=== PATIENT | male | born 1960 | race Hispanic/Latino ===

== ENCOUNTER 2017-02-28 17:04 | Emergency (ER) | payer MEDICAID ==
[2017-02-28 17:05] VITALS: BMI 42.5
[2017-02-28 17:18] VITALS: TEMP 99
--- NOTE | 2017-02-28 17:42 | ED PDOC ---
Arrival/HPI - General Chief Complaint: Male Genitourinary Time Seen by Provider: 02/28/17 17:14 Historian: Patient - History of Present Illness Narrative History of Present Illness (Text): 02/28/17 17:34 A 56 year old male, whose past medical history includes hypertension and arthritis, presents to the emergency department complaining of hematuria. Patient states he first had clotted blood but later resolved. He also mentions he has never had this problem before. Patient denies of any fever, chills, back pain, penile pain, weight loss, or any other complaints. Also, he states he took aspirin this morning. PMD: Dr. Kevin Cervantes Past Medical History - Provider Review Nursing Documentation Reviewed: Yes - Past History Past History: No Previous - Infectious Disease Hx of Infectious Diseases: None - Tetanus Immunization Tetanus Immunization: Unknown - Past Medical History Past Medical History: No Previous - Cardiac Hx Cardiac Disorders: Yes Hx Hypertension: Yes Hx Peripheral Edema: Yes - Pulmonary Hx Respiratory Disorders: No - Neurological Hx Neurological Disorder: No - HEENT Hx HEENT Disorder: No - Renal Hx Renal Disorder: No - Endocrine/Metabolic Hx Endocrine Disorders: No - Hematological/Oncological Hx Blood Disorders: No - Integumentary Hx Dermatological Disorder: No Other/Comment: right foot and lower leg with redness - Musculoskeletal/Rheumatological Hx Musculoskeletal Disorders: Yes Hx Arthritis: Yes Hx Falls: No Hx Gout: Yes Other/Comment: GOUT, R KNEE PAIN, FASCIAL PAIN TO FEET - Gastrointestinal Hx Gastrointestinal Disorders: No - Genitourinary/Gynecological Hx Genitourinary Disorders: No - Psychiatric Hx Psychophysiologic Disorder: No Hx Depression: No Hx Emotional Abuse: No Hx Physical Abuse: No Hx Substance Use: No - Past Surgical History Past Surgical History: Non-Contributing - Surgical History Hx Appendectomy: Yes - Anesthesia Hx Anesthesia: Yes Hx Anesthesia Reactions: No Hx Malignant Hyperthermia: No - Suicidal Assessment Feels Threatened In Home Enviroment: No Family/Social History - Physician Review Nursing Documentation Reviewed: Yes Family/Social History: No Known Family HX Smoking Status: Never Smoked Hx Alcohol Use: No Hx Substance Use: No Hx Substance Use Treatment: No Allergies/Home Meds Allergies/Adverse Reactions: Allergies Sulfa (Sulfonamide Antibiotics) Allergy (Verified 02/28/17 17:18) RASH ragweed Allergy (Uncoded 02/28/17 17:18) CONGESTION Home Medications: Home Meds Medication Instructions Recorded Confirmed No Known Home Med 02/28/17 02/28/17 Review of Systems - Review of Systems Constitutional: absent: Weight Change, Fevers, Night Sweats Genitourinary Male: Hematuria. absent: Other (no penile pain) Musculoskeletal: absent: Back Pain Physical Exam Vital Signs Reviewed: Yes Vital Signs Temp Pulse Resp BP Pulse Ox 02/28/17 18:22 93 H 17 185/94 H 98 02/28/17 17:15 99 F 97 H 16 187/100 H 95 Temperature: Afebrile Blood Pressure: Hypertensive Pulse: Regular Respiratory Rate: Normal Appearance: Positive for: Well-Appearing Pain Distress: None Mental Status: Positive for: Alert and Oriented X 3 - Systems Exam Head: Present: Atraumatic, Normocephalic Pupils: Present: PERRL Extroacular Muscles: Present: EOMI Conjunctiva: Present: Normal Mouth: Present: Moist Mucous Membranes Neck: Present: Normal Range of Motion Respiratory/Chest: Present: Clear to Auscultation, Good Air Exchange. No: Respiratory Distress, Accessory Muscle Use Cardiovascular: Present: Regular Rate and Rhythm, Normal S1, S2. No: Murmurs Abdomen: Present: Normal Bowel Sounds. No: Tenderness, Distention, Peritoneal Signs Back: Present: Normal Inspection Upper Extremity: Present: Normal Inspection. No: Cyanosis, Edema Lower Extremity: Present: Normal Inspection. No: Edema Neurological: Present: GCS=15, CN II-XII Intact, Speech Normal Skin: Present: Warm, Dry, Normal Color. No: Rashes Psychiatric: Present: Alert, Oriented x 3, Normal Insight, Normal Concentration Medical Decision Making ED Course and Treatment: 02/28/17 17:36 Impression: 56 year old male with hematuria. No acute findings in physical exam. Differential Diagnosis included but are not limited to: Hematuria secondary to UTI vs. Renal Failure Plan: -- Labs -- Urinalysis -- Urine Culture -- Reassess and disposition Prior Visits: Notes and results from previous visits were reviewed. Patient was last seen in the emergency department on 04/09/2016 for intermittent bleeding from the right upper side of his nose. Patient was discharged home. Progress Notes: Potassium low and replaced. Patient has no UTI. Advised to return to the ED if symptoms worsen or any other concern. I discussed with him the importance of follow up with his PMD and Urology and that he should have a work up for cancer. He repeated these follow up instructions to me and said he understood. - Lab Interpretations Lab Results: 02/28/17 17:45 02/28/17 17:45 Lab Results 02/28/17 17:45: Sodium 138, Potassium 3.2 L, Chloride 100, Carbon Dioxide 30, Anion Gap 11, BUN 14, Creatinine 0.8, Est GFR ( Amer) > 60, Est GFR (Non- Af Amer) > 60, Random Glucose 153 H, Calcium 9.2 02/28/17 17:45: WBC 9.9 D, RBC 4.66, Hgb 14.3, Hct 41.0 L, MCV 88.0, MCH 30.7, MCHC 34.9, RDW 13.6, Plt Count 261, MPV 9.0, Gran % 55.2, Lymph % (Auto) 31.3, [place] % (Auto) 9.6 H, Eos % (Auto) 3.7, Baso % (Auto) 0.2, Gran # 5.44, Lymph # 3.1, [place] # 1.0 H, Eos # 0.4, Baso # 0.02 02/28/17 17:30: Urine Color Yellow, Urine Appearance Clear, Urine pH 7.0, Ur Specific [place] <= 1.005, Urine Protein Negative, Urine Glucose (UA) Negative, Urine Ketones Negative, Urine Blood Trace-intact H, Urine Nitrate Negative, Urine Bilirubin Negative, Urine Urobilinogen 0.2, Ur Leukocyte Esterase Negative , Urine RBC 0 - 2, Urine WBC Negative, Ur Epithelial Cells 0 - 2, Urine Bacteria Neg I have reviewed the lab results: Yes - Medication Orders Current Medication Orders: Discontinued Medications Potassium Chloride (K-Dur 20 Meq Er Tab) 40 meq PO STAT STA Stop: 02/28/17 18:17 Last Admin: 02/28/17 18:27 Dose: 40 meq - Scribe Statement The provider has reviewed the documentation as recorded by the Moises Barrios Provider Scribe Attestation: All medical record entries made by the Jose Libpatricio were at my direction and personally dictated by me. I have reviewed the chart and agree that the record accurately reflects my personal performance of the history, physical exam, medical decision making, and the department course for this patient. I have also personally directed, reviewed, and agree with the discharge instructions and disposition. Disposition/Present on Arrival - Present on Arrival Any Indicators Present on Arrival: No History of DVT/PE: No History of Uncontrolled Diabetes: No Urinary Catheter: No History of Decub. Ulcer: No History Surgical Site Infection Following: None - Disposition Have Diagnosis and Disposition been Completed?: Yes Diagnosis: Hematuria, Hypokalemia Disposition: HOME/ ROUTINE Disposition Time: 18:30 Patient Plan: Discharge Condition: IMPROVED Discharge Instructions (ExitCare): Acute Hematuria (ED) Additional Instructions: Mr Rios, thank you for letting us take care of you today. Your provider was Dr. Nunez. You were treated for Hematuria The emergency medical care you received today was directed at your acute symptoms. If you were prescribed any medication, please fill it and take as directed. It may take several days for your symptoms to resolve. Return to the Emergency Department if your symptoms worsen, do not improve, or if you have any other problems. Please contact your doctor or call one of the physicians/clinics you have been referred to that are listed on the Patient Visit Information form that is included in your discharge packet. Bring any paperwork you were given at discharge with you along with any medications you are taking to your follow up visit. Our treatment cannot replace ongoing medical care by a primary care provider (PCP) outside of the emergency department. Thank you for allowing the [facility] team to be part of your care today. If you had an X-Ray or CT scan: A Radiologist will review the ED reading if any change in treatment is needed we will contact you. If you had a blood, urine, or wound culture: It will take several days for the results, if any change in treatment is needed we will contact you. If you had an STI test: It will take 48 hours for the results. Please call after 1 week if you have not heard back. Referrals: Monty Robledo MD [Staff Provider] - Follow up with primary Kevin Cervantes MD [Primary Care Provider] - Follow up with primary Forms: [employer] (Armenian)
[2017-02-28 18:00] LABS: URINE BILIRUBIN NEGATIVE (NEGATIVE); URINE BLOOD TRACE-INTACT (NEGATIVE); URINE GLUCOSE (UA) NEGATIVE (NEGATIVE); URINE KETONE NEGATIVE (NEGATIVE); URINE LEUKOCYTE ESTERASE NEGATIVE Leu/uL (NEGATIVE); URINE PROTEIN NEGATIVE mg/dL (<30 mg/dL); URINE UROBILINOGEN 0.2 E.U./dL (<1 E.U./dL)
[2017-02-28 18:00] LABS: BASO # 0.02 K/mm3 (0.0-2.0); BASO % 0.2 % (0.0-3.0); EOS # 0.4 (0.0-0.7); EOS % 3.7 % (1.5-5.0); GRAN # 5.44 (1.4-6.5); GRAN % 55.2 % (50.0-68.0); LYMPH # 3.1 (1.2-3.4); LYMPH % 31.3 % (22.0-35.0); MEAN CORPUSCULAR HEMOGLOBIN 30.7 pg (25.0-35.0); MEAN CORPUSCULAR HGB CONC 34.9 g/dl (31.0-37.0); MONO % 9.6 % (1.0-6.0); RED CELL DISTRIBUTION WIDTH 13.6 % (11.5-14.5); WHITE BLOOD COUNT 9.9 10^3/ul (4.5-11.0)
[2017-02-28 18:04] LABS: URINE APPEARANCE CLEAR (CLEAR); URINE COLOR YELLOW (YELLOW)
[2017-02-28 18:08] LABS: BLOOD UREA NITROGEN 14 mg/dL (7-21); CALCIUM 9.2 mg/dL (8.4-10.5); CARBON DIOXIDE 30 mmol/L (21-33); CHLORIDE 100 mmol/L (98-107); GFR AFRICAN-AMERICAN > 60; GLUCOSE,RANDOM 153 mg/dL (70-110); POTASSIUM 3.2 mmol/L (3.6-5.0); SODIUM 138 mmol/L (132-148)
[2017-02-28 18:14] LABS: URINE BACTERIA NEG (NEG); URINE EPITHELIAL CELLS 0 - 2 /hpf (0-5); URINE RBC 0 - 2 /hpf (0-2); URINE WBC NEGATIVE /hpf (0-6)
[2017-02-28] MEDS ORDERED: Potassium Chloride 20 mEq ER Tab PO STA (18:16)
[2017-02-28 18:23] VITALS: BP 185/94; PULSE 93; RESP 17; O2SAT 98
== END 2017-02-28 18:32 | disposition home or self-care (01) ==
LOC: ED 17:04
DX: R31.9 Hematuria, unspecified (principal); E87.6 Hypokalemia; I10 Essential (primary) hypertension

== ENCOUNTER 2017-03-03 15:25 | Emergency (ER) | payer MEDICAID ==
[2017-03-03 15:46] VITALS: BMI 32.5
[2017-03-03 15:59] VITALS: BP 131/84; PULSE 93; RESP 16; TEMP 97.9; O2SAT 97
[2017-03-03] MEDS ORDERED: Naproxen 550 mg Tab PO STA (16:27)
--- NOTE | 2017-03-03 16:57 | ED PDOC ---
Arrival/HPI - General Chief Complaint: Finger,Hand,&Wrist Time Seen by Provider: 03/03/17 15:56 Historian: Patient - History of Present Illness Narrative History of Present Illness (Text): 03/03/17 16:54 56 year old male with no significant medical history, presents to the emergency department complaining of pain and swelling to the left 3rd digit. Patient reports picking his nails often that may have caused this "infection". Patient denies any trauma, fever, chills, numbness, decrease in ROM, or any other complaints/ injuries. PMD: Dr. Cervantes Symptom Onset: Gradual Symptom Course: Unchanged Activities at Onset: Light Context: Home Past Medical History - Provider Review Nursing Documentation Reviewed: Yes - Past History Past History: No Previous - Infectious Disease Hx of Infectious Diseases: None - Tetanus Immunization Tetanus Immunization: Unknown - Reproductive Currently : No - Past Medical History Past Medical History: No Previous - Cardiac Hx Cardiac Disorders: Yes Hx Hypertension: Yes Hx Peripheral Edema: Yes - Pulmonary Hx Respiratory Disorders: No - Neurological Hx Neurological Disorder: No - HEENT Hx HEENT Disorder: No - Renal Hx Renal Disorder: No - Endocrine/Metabolic Hx Endocrine Disorders: No - Hematological/Oncological Hx Blood Disorders: No - Integumentary Hx Dermatological Disorder: No Other/Comment: right foot and lower leg with redness - Musculoskeletal/Rheumatological Hx Musculoskeletal Disorders: Yes Hx Arthritis: Yes Hx Falls: No Hx Gout: Yes Other/Comment: GOUT, R KNEE PAIN, FASCIAL PAIN TO FEET - Gastrointestinal Hx Gastrointestinal Disorders: No - Genitourinary/Gynecological Hx Genitourinary Disorders: No - Psychiatric Hx Psychophysiologic Disorder: No Hx Depression: No Hx Emotional Abuse: No Hx Physical Abuse: No Hx Substance Use: No - Past Surgical History Past Surgical History: Non-Contributing - Surgical History Hx Appendectomy: Yes - Anesthesia Hx Anesthesia: Yes Hx Anesthesia Reactions: No Hx Malignant Hyperthermia: No - Suicidal Assessment Feels Threatened In Home Enviroment: No Family/Social History - Physician Review Nursing Documentation Reviewed: Yes Family/Social History: No Known Family HX Smoking Status: Never Smoked Hx Alcohol Use: No Hx Substance Use: No Hx Substance Use Treatment: No Allergies/Home Meds Allergies/Adverse Reactions: Allergies Sulfa (Sulfonamide Antibiotics) Allergy (Verified 02/28/17 17:18) RASH ragweed Allergy (Uncoded 10/12/17 17:18) CONGESTION Review of Systems - Physician Review All systems were reviewed & negative as marked: Yes - Review of Systems Constitutional: Normal. absent: Fatigue, Weight Change, Fevers, Other (Chills) Musculoskeletal: Normal, Arthralgias. absent: Back Pain, Neck Pain Skin: Normal. absent: Rash, Pruritis, Skin Lesions Physical Exam Vital Signs Reviewed: Yes Vital Signs Temp Pulse Resp BP Pulse Ox 03/03/17 15:59 97.9 F 93 H 16 131/84 97 Temperature: Afebrile Blood Pressure: Normal Pulse: Regular Respiratory Rate: Normal Appearance: Positive for: Well-Appearing, Non-Toxic, Comfortable Pain Distress: None Mental Status: Positive for: Alert and Oriented X 3 - Systems Exam Head: Present: Atraumatic, Normocephalic Neck: Present: Normal Range of Motion Back: Present: Normal Inspection Upper Extremity: Present: Normal Inspection, Edema, Normal ROM, NORMAL PULSES, Capillary Refill < 2s, Norm 2-Pt Discrimination, Other (Mild erythema and edema to the nail margin). No: Cyanosis, Temperature Abnormalties, Deformity Lower Extremity: Present: Normal Inspection. No: Edema Neurological: Present: GCS=15, CN II-XII Intact, Speech Normal Skin: Present: Warm, Dry, Normal Color. No: Rashes Medical Decision Making ED Course and Treatment: 03/03/17 16:54 Impression: 56 year old male presents complaining of pain and swelling to the left third digit finger/nail. Plan: -- Anaprox DS -- Keflex -- Reassess and disposition Progress Notes: Diagnosis of paronychia d/w the patient. Advised to apply warm compresses and finish course of antibiotics. Patient advised to follow up with urology referral in 1-2 days without fail. Advised to take medication as prescribed. Return to the emergency room at any time for any new or worsening symptoms. Patient states he fully agrees with and understands discharge instructions. States that he agrees with the plan and disposition. Verbalized and repeated discharge instructions and plan. I have given the patient opportunity to ask any additional questions. - Medication Orders Current Medication Orders: Discontinued Medications Cephalexin Monohydrate (Keflex) 500 mg PO STAT STA PRN Reason: Protocol Stop: 03/03/17 16:27 Last Admin: 03/03/17 16:55 Dose: 500 mg Naproxen (Anaprox Ds) 550 mg PO STAT STA Stop: 03/03/17 16:28 Last Admin: 03/03/17 16:56 Dose: 550 mg - PA / CARROT BUNCHER / Resident Statement MD/DO has reviewed & agrees with the documentation as recorded. - Scribe Statement The provider has reviewed the documentation as recorded by the Scribe Acosta Dubose All medical record entries made by the Scribe were at my direction and personally dictated by me. I have reviewed the chart and agree that the record accurately reflects my personal performance of the history, physical exam, medical decision making, and the department course for this patient. I have also personally directed, reviewed, and agree with the discharge instructions and disposition. Disposition/Present on Arrival - Present on Arrival Any Indicators Present on Arrival: No History of DVT/PE: No History of Uncontrolled Diabetes: No Urinary Catheter: No History of Decub. Ulcer: No History Surgical Site Infection Following: None - Disposition Have Diagnosis and Disposition been Completed?: Yes Diagnosis: Paronychia of finger of left hand Disposition: HOME/ ROUTINE Disposition Time: 16:27 Patient Plan: Discharge Condition: STABLE Discharge Instructions (ExitCare): Paronychia (ED) Print Language: INDIAN Additional Instructions: Thank you for letting us take care of you today. You were treated for paronychia. The emergency medical care you received today was directed at your acute symptoms. If you were prescribed any medication, please fill it and take as directed. It may take several days for your symptoms to resolve. Return to the Emergency Department if your symptoms worsen, do not improve, or if you have any other problems. Please contact your doctor in 2 days for re-evaluation and follow up. Bring any paperwork you were given at discharge with you along with any medications you are taking to your follow up visit. Our treatment cannot replace ongoing medical care by a primary care provider (PCP) outside of the emergency department. Thank you for allowing the [facility] team to be part of your care today. Prescriptions: Cephalexin [Keflex] 500 mg PO Q6 #28 capsule Naproxen 500 mg PO BID #30 tab Referrals: Kevin Cervantes MD [Primary Care Provider] - Follow up with primary Forms: [employer] (Arabic), WORK NOTE
== END 2017-03-03 17:14 | disposition home or self-care (01) ==
LOC: ED 15:25
DX: L03.012 Cellulitis of left finger (principal)

== ENCOUNTER 2017-03-16 20:07 | Emergency (ER) | payer MEDICAID ==
[2017-03-16 20:30] VITALS: BMI 29.8
[2017-03-16 20:39] VITALS: TEMP 98.7
[2017-03-16] MEDS ORDERED: Oxycodone/Acetaminophen 5/325 mg Tab PO STA (20:53)
--- NOTE | 2017-03-16 20:53 | ED PDOC ---
Arrival/HPI - General Chief Complaint: Finger,Hand,&Wrist Time Seen by Provider: 03/16/17 20:47 Historian: Patient - History of Present Illness Narrative History of Present Illness (Text): 03/16/17 20:47 56 y/o male, pmh including paronychia, c/o lt. hand 3rd digit finger nail swelling and pain x 3 days with no fall or trauma. Pt. stated that his lt. hand 3rd digit started to have swelling about 3 days ago, admits cutting the nail very short and washing the dishes/soap alot, no numbness or tingling, no difficulty moving the lt. hand 3rd digit, no pain medication taken at home, no other medical or psychological complaints. Past Medical History - Provider Review Nursing Documentation Reviewed: Yes - Past History Past History: No Previous - Infectious Disease Hx of Infectious Diseases: None - Tetanus Immunization Tetanus Immunization: Unknown - Reproductive Currently : No - Past Medical History Past Medical History: No Previous - Cardiac Hx Cardiac Disorders: Yes Hx Hypertension: Yes Hx Peripheral Edema: Yes - Pulmonary Hx Respiratory Disorders: No - Neurological Hx Neurological Disorder: No - HEENT Hx HEENT Disorder: No - Renal Hx Renal Disorder: No - Endocrine/Metabolic Hx Endocrine Disorders: No - Hematological/Oncological Hx Blood Disorders: No - Integumentary Hx Dermatological Disorder: No Other/Comment: right foot and lower leg with redness - Musculoskeletal/Rheumatological Hx Musculoskeletal Disorders: Yes Hx Arthritis: Yes Hx Falls: No Hx Gout: Yes Other/Comment: GOUT, R KNEE PAIN, FASCIAL PAIN TO FEET - Gastrointestinal Hx Gastrointestinal Disorders: No - Genitourinary/Gynecological Hx Genitourinary Disorders: No - Psychiatric Hx Psychophysiologic Disorder: No Hx Depression: No Hx Emotional Abuse: No Hx Physical Abuse: No Hx Substance Use: No - Past Surgical History Past Surgical History: Non-Contributing - Surgical History Hx Appendectomy: Yes - Anesthesia Hx Anesthesia: Yes Hx Anesthesia Reactions: No Hx Malignant Hyperthermia: No - Suicidal Assessment Feels Threatened In Home Enviroment: No Family/Social History - Physician Review Nursing Documentation Reviewed: Yes Family/Social History: Unknown Family HX Smoking Status: Never Smoked Hx Alcohol Use: No Hx Substance Use: No Hx Substance Use Treatment: No Allergies/Home Meds Allergies/Adverse Reactions: Allergies Sulfa (Sulfonamide Antibiotics) Allergy (Verified 03/17/17 16:09) RASH ragweed Allergy (Uncoded 03/17/17 16:09) CONGESTION Review of Systems - Review of Systems Constitutional: absent: Fatigue, Fevers Eyes: absent: Vision Changes ENT: absent: Hearing Changes Respiratory: absent: SOB, Cough Cardiovascular: absent: Chest Pain Gastrointestinal: absent: Abdominal Pain, Nausea, Vomiting Musculoskeletal: absent: Arthralgias, Back Pain, Neck Pain, Joint Swelling, Myalgias Skin: Rash, Skin Lesions, Abscess. absent: Pruritis, Laceration, Ulcer, Cellulitis Neurological: absent: Headache, Dizziness Physical Exam Vital Signs Reviewed: Yes Vital Signs Temp Pulse Resp BP Pulse Ox 03/16/17 22:42 88 18 161/90 H 96 03/16/17 20:38 98.7 F 16 184/95 H 98 03/16/17 20:23 98.4 F 91 H 18 208/118 H 99 Temperature: Afebrile Blood Pressure: Hypertensive Pulse: Regular Respiratory Rate: Normal Appearance: Positive for: Well-Appearing, Non-Toxic Pain Distress: Severe Mental Status: Positive for: Alert and Oriented X 3 - Systems Exam Head: Present: Atraumatic, Normocephalic Pupils: Present: PERRL Extroacular Muscles: Present: EOMI Conjunctiva: Present: Normal Mouth: Present: Moist Mucous Membranes Neck: Present: Normal Range of Motion Respiratory/Chest: Present: Clear to Auscultation, Good Air Exchange. No: Respiratory Distress, Accessory Muscle Use Cardiovascular: Present: Regular Rate and Rhythm, Normal S1, S2. No: Murmurs Abdomen: Present: Normal Bowel Sounds. No: Tenderness, Distention, Peritoneal Signs Back: Present: Normal Inspection Upper Extremity: Present: Normal Inspection, Other (Lt. hand 3rd digit: visible paronychia noted with mild fluctuant, no cellulitis or streaking, no ulcers, no sausage shaped fingers, Negative Kanavel's signs, FROM without limitation, sensation intact, motor 5/5, +radial pulse, capillary refill< 2 seconds, neurovascular intact. ). No: Cyanosis, Edema Lower Extremity: Present: Normal Inspection. No: Edema Neurological: Present: GCS=15, CN II-XII Intact, Speech Normal Skin: Present: Warm, Dry, Normal Color. No: Rashes Psychiatric: Present: Alert, Oriented x 3, Normal Insight, Normal Concentration Medical Decision Making ED Course and Treatment: 03/16/17 21:03 -clindamycin/motrin/percocet -xray 03/16/17 21:55 -xray show ER wet read: no fracture or dislocation, there are degenerative joint changes. -asymptomatic elevated BP, advised to follow up with the pmd for the follow up. -sensation intact, motor 5/5, wound irrigate with normal saline, clean with betadine, #11 blade made 0.1cm length incision, approx. cc yellow purlulant discharge, no vesicular lesion or herpetic leanna noted, hemostasis obtained, bacitracin and gauze dressing, sensation intact, motor 5/5. -Discharge home with clindamycin, motrin, bacitracin oinment, keep the finger dry and clean for 2 days and return to the ER for wound check, follow up with your own pmd and hand specialist within 2 days, return to the ER for any new or worsening signs or symptoms. - RAD Interpretation Radiology Orders: 03/16/17 20:56 HAND LEFT 3RD DIGIT (FINGER) [RAD] Stat no fracture or dislocation, diffuse DIPJ degenerative changes Circuit Breaker Mechanic: Radiologist - Medication Orders Current Medication Orders: Discontinued Medications Clindamycin HCl (Cleocin) 300 mg PO STAT STA PRN Reason: Protocol Stop: 03/16/17 20:54 Last Admin: 03/16/17 21:04 Dose: 300 mg Ibuprofen (Motrin Tab) 600 mg PO STAT STA Stop: 03/16/17 20:54 Last Admin: 03/16/17 21:04 Dose: 600 mg MAR Pain/Vitals Document 03/16/17 21:04 MS (Rec: 03/16/17 21:04 [email or web address] Pain Reassessment Is This A Pain ReAssessment? No Oxycodone/Acetaminophen (Percocet 5/325 Mg Tab) 1 tab PO STAT STA Stop: 03/16/17 20:54 Last Admin: 03/16/17 21:04 Dose: 1 tab MAR Pain Assessment Document 03/16/17 21:04 MS (Rec: 03/16/17 21:04 [email or web address] Pain Reassessment Is this a pain reassessment? No - PA / MACHINE CEMENTER / Resident Statement MD/DO has reviewed & agrees with the documentation as recorded. Disposition/Present on Arrival - Present on Arrival Any Indicators Present on Arrival: No History of DVT/PE: No History of Uncontrolled Diabetes: No Urinary Catheter: No History of Decub. Ulcer: No History Surgical Site Infection Following: None - Disposition Have Diagnosis and Disposition been Completed?: Yes Diagnosis: Paronychia Disposition: HOME/ ROUTINE Disposition Time: 22:31 Patient Plan: Discharge Patient Problems: Current Active Problems Problem Status Onset Encounter for wound re-check Acute Nonspecific abdominal pain Acute Condition: GOOD Additional Instructions: -Discharge home with clindamycin, motrin, bacitracin oinment, keep the finger dry and clean for 2 days and return to the ER for wound check, follow up with your own pmd and hand specialist within 2 days, return to the ER for any new or worsening signs or symptoms. Prescriptions: Bacitracin Ointment [Bacitracin] 1 appful TOP BID #15 g Clindamycin [Cleocin] 300 mg PO TID #30 cap Ibuprofen [Motrin Tab] 600 mg PO TID #18 tab Referrals: Kevin Cervantes MD [Primary Care Provider] - Follow up with primary Samra Gates MD [Staff Provider] - Follow up with primary Forms: WORK NOTE
[2017-03-16 22:42] VITALS: BP 161/90
[2017-03-16 22:46] VITALS: PULSE 88; RESP 18; O2SAT 96
--- NOTE | 2017-03-17 09:16 | RAD ---
PROCEDURE: Left middle finger radiographs. HISTORY: lt. hand 3rd digit swelling COMPARISON: None. TECHNIQUE: AP radiograph of the left hand, as well as spot oblique and lateral images of left middle finger were obtained. FINDINGS: LEFT MIDDLE FINGER: Left middle finger normal, without fracture of focal lesion. Remainder of the left hand (as seen on the AP view) is grossly unremarkable. No destructive bony lesion is identified. JOINTS: Advanced osteoarthritis appreciate the distal interphalangeal joints diffusely with far lesser degenerative changes seen throughout the proximal interphalangeal joints. SOFT TISSUES: Normal. OTHER FINDINGS: None. IMPRESSION: No acute fracture dislocation left long finger. However, diffuse degenerative joint disease seen quite advanced throughout the distal interphalangeal joints diffusely.
== END 2017-03-16 22:47 | disposition home or self-care (01) ==
LOC: ED 20:07
DX: L03.012 Cellulitis of left finger (principal); I10 Essential (primary) hypertension

== ENCOUNTER 2017-03-17 15:56 | Emergency (ER) | payer MEDICAID ==
[2017-03-17 15:57] VITALS: BMI 29.8
[2017-03-17 16:10] VITALS: BP 152/96; PULSE 79; RESP 18; TEMP 98.4; O2SAT 100
--- NOTE | 2017-03-17 16:35 | ED PDOC ---
Arrival/HPI - General Chief Complaint: Abdominal Pain Time Seen by Provider: 03/17/17 16:09 Historian: Patient - History of Present Illness Narrative History of Present Illness (Text): 03/17/17 16:27 This 56 yo male presents to this ED requesting change of his antibiotic. Patient stated he was prescribed Clindamycin for paronychia yesterday. He took another dose this morning which caused cramping of his stomach. Patient stated he does not have abdominal pain at this time. Patient denies nausea, vomiting, urinary symptoms, chest pain, SOB, urinary symptoms, rectal bleeding, diarrhea, constipation, dizziness, or abnormal gait. Patient showed me an empty bottle Naproxen. He also stated taking Motrin before Time/Duration: Other (see hpi) Quality: Other (see hpi) Context: Home Past Medical History - Provider Review Nursing Documentation Reviewed: Yes - Past History Past History: No Previous - Infectious Disease Hx of Infectious Diseases: None - Tetanus Immunization Tetanus Immunization: Unknown - Reproductive Currently : No - Past Medical History Past Medical History: No Previous - Cardiac Hx Cardiac Disorders: Yes Hx Hypertension: Yes Hx Peripheral Edema: Yes - Pulmonary Hx Respiratory Disorders: No - Neurological Hx Neurological Disorder: No - HEENT Hx HEENT Disorder: No - Renal Hx Renal Disorder: No - Endocrine/Metabolic Hx Endocrine Disorders: No - Hematological/Oncological Hx Blood Disorders: No - Integumentary Hx Dermatological Disorder: No Other/Comment: right foot and lower leg with redness - Musculoskeletal/Rheumatological Hx Musculoskeletal Disorders: Yes Hx Arthritis: Yes Hx Falls: No Hx Gout: Yes Other/Comment: GOUT, R KNEE PAIN, FASCIAL PAIN TO FEET - Gastrointestinal Hx Gastrointestinal Disorders: No - Genitourinary/Gynecological Hx Genitourinary Disorders: No - Psychiatric Hx Psychophysiologic Disorder: No Hx Depression: No Hx Emotional Abuse: No Hx Physical Abuse: No Hx Substance Use: No - Past Surgical History Past Surgical History: Non-Contributing - Surgical History Hx Appendectomy: Yes - Anesthesia Hx Anesthesia: Yes Hx Anesthesia Reactions: No Hx Malignant Hyperthermia: No - Suicidal Assessment Feels Threatened In Home Enviroment: No Family/Social History - Physician Review Nursing Documentation Reviewed: Yes Family/Social History: Other (noncontributory) Smoking Status: Never Smoked Hx Alcohol Use: No Hx Substance Use: No Hx Substance Use Treatment: No Allergies/Home Meds Allergies/Adverse Reactions: Allergies Sulfa (Sulfonamide Antibiotics) Allergy (Verified 03/17/17 16:09) RASH ragweed Allergy (Uncoded 03/17/17 16:09) CONGESTION Review of Systems - Review of Systems Constitutional: Normal. absent: Fatigue, Weight Change, Fevers, Night Sweats Eyes: Normal ENT: Normal. absent: Hearing Changes, Sore Throat Respiratory: Normal. absent: SOB, Cough Cardiovascular: Normal. absent: Chest Pain Gastrointestinal: Other (see hpi). absent: Stool Changes, Constipation, Diarrhea, Nausea, Vomiting, Appetite Changes, Hematochezia, Hematemesis, Anorexia, Food Intolerance Genitourinary Male: Normal. absent: Dysuria, Frequency, Hematuria Musculoskeletal: Normal. absent: Back Pain, Neck Pain Skin: Normal. absent: Rash Neurological: Normal Endocrine: Normal Hemo/Lymphatic: Normal Psychiatric: Normal Physical Exam Vital Signs Temp Pulse Resp BP Pulse Ox 03/17/17 16:09 98.4 F 79 18 152/96 H 100 Temperature: Afebrile Blood Pressure: Hypertensive Pulse: Regular Respiratory Rate: Normal Appearance: Positive for: Well-Appearing, Non-Toxic, Comfortable Pain Distress: None Mental Status: Positive for: Alert and Oriented X 3 - Systems Exam Head: Present: Atraumatic, Normocephalic Pupils: Present: PERRL Extroacular Muscles: Present: EOMI Conjunctiva: Present: Normal Mouth: Present: Moist Mucous Membranes Neck: Present: Normal Range of Motion Respiratory/Chest: Present: Clear to Auscultation, Good Air Exchange. No: Respiratory Distress, Accessory Muscle Use Cardiovascular: Present: Regular Rate and Rhythm, Normal S1, S2. No: Murmurs Abdomen: Present: Normal Bowel Sounds. No: Tenderness, Distention, Peritoneal Signs, Rebound, Guarding Back: Present: Normal Inspection. No: CVA Tenderness Upper Extremity: Present: Normal Inspection, Normal ROM, NORMAL PULSES, Neurovascularly Intact, Capillary Refill < 2s. No: Cyanosis, Edema Lower Extremity: Present: Normal Inspection, NORMAL PULSES, Normal ROM, Neurovascularly Intact, Capillary Refill < 2 s. No: Edema, CALF TENDERNESS Neurological: Present: GCS=15, CN II-XII Intact, Speech Normal, Motor Func Grossly Intact, Normal Sensory Function, Normal Cerebellar Funct, Gait Normal Skin: Present: Warm, Dry, Normal Color. No: Rashes Psychiatric: Present: Alert, Oriented x 3, Normal Insight, Normal Concentration Medical Decision Making ED Course and Treatment: 03/17/17 16:37 Patient is resting comfortably, abdomen remains soft, and patient is tolerating PO. Patient feels comfortable going home. Patient will be discharged home. Patient was recommended to stop taking Naproxen or Motrin. Re-evaluation Time: 16:37 Reassessment Condition: Re-examined, Improved Disposition/Present on Arrival - Present on Arrival Any Indicators Present on Arrival: No History of DVT/PE: No History of Uncontrolled Diabetes: No Urinary Catheter: No History of Decub. Ulcer: No History Surgical Site Infection Following: None - Disposition Have Diagnosis and Disposition been Completed?: Yes Diagnosis: Encounter for wound re-check, Nonspecific abdominal pain Disposition: HOME/ ROUTINE Disposition Time: 16:42 Patient Plan: Discharge Condition: GOOD Discharge Instructions (ExitCare): Abdominal Pain (ED) Additional Instructions: Call private doctor for follow up visit in 1-2 days. Take medication as instructed with food. Do not take Motrin, Naproxen for pain. Take only Tylenol as needed. Return to emergency if pain returns. Stop taking Clindamycin. Clean finger wound daily with soap and water. Prescriptions: Doxycycline Monohydrate 100 mg PO BID #14 tablet Famotidine [Pepcid] 40 mg PO DAILY #10 tablet Omeprazole 40 mg PO DAILY #10 capsule. Referrals: [facility] [Outside] - Follow up with primary [facility] [Outside] - Follow up with primary
[2017-03-17] MEDS ORDERED: Atrop/Hyosc/Scopal/PB Elixir (120 ml) PO STA (16:44)
[2017-03-17] MEDS ORDERED: Lidocaine 2% Viscous 100 ml PO STA (16:44)
[2017-03-17] MEDS ORDERED: Alum-Mag Hydrox-Simethicone Susp (30 mL) PO STA (16:45)
== END 2017-03-17 17:10 | disposition home or self-care (01) ==
LOC: ED 15:56
DX: R10.9 Unspecified abdominal pain (principal); Z51.89 Encounter for other specified aftercare

== ENCOUNTER 2017-03-19 20:51 | Emergency (ER) | payer MEDICAID ==
[2017-03-19 21:11] VITALS: BMI 32.5
[2017-03-19 21:14] VITALS: BP 190/100; PULSE 84; RESP 18; TEMP 98; O2SAT 96
--- NOTE | 2017-03-19 21:42 | ED PDOC ---
Arrival/HPI - General Chief Complaint: Wound Check Time Seen by Provider: 03/19/17 20:54 - Critical Care Narrative Critical Care (Text): 03/19/17 21:39 CC: wound check Patient is coming in for a wound check. Patient is adamant that his blood pressure gets elevated when he comes to the Emergency department and after he eats dinner. He is in denial about his blood pressure and refuses to take any medicine for it. I urged him to seek treatment for his blood pressure as it is a silent killer and the patient believes that I am making it all up. The patient has no complaints today; denies any finger pain, headache, chest pain, shortness of breath, abdominal pain, Nausea, vomiting, diarrhea, or lower extremity pain swelling. Past Medical History - Provider Review Nursing Documentation Reviewed: Yes - Travel History Have you recently traveled outside [place] w/in the past 3 mons?: No - Past History Past History: No Previous - Infectious Disease Hx of Infectious Diseases: None - Tetanus Immunization Tetanus Immunization: Unknown - Reproductive Currently : No - Past Medical History Past Medical History: No Previous - Cardiac Hx Cardiac Disorders: Yes Hx Hypertension: Yes Hx Peripheral Edema: Yes - Pulmonary Hx Respiratory Disorders: No - Neurological Hx Neurological Disorder: No - HEENT Hx HEENT Disorder: No - Renal Hx Renal Disorder: No - Endocrine/Metabolic Hx Endocrine Disorders: No - Hematological/Oncological Hx Blood Disorders: No - Integumentary Hx Dermatological Disorder: No Other/Comment: right foot and lower leg with redness - Musculoskeletal/Rheumatological Hx Musculoskeletal Disorders: Yes Hx Arthritis: Yes Hx Falls: No Hx Gout: Yes Other/Comment: GOUT, R KNEE PAIN, FASCIAL PAIN TO FEET - Gastrointestinal Hx Gastrointestinal Disorders: No - Genitourinary/Gynecological Hx Genitourinary Disorders: No - Psychiatric Hx Psychophysiologic Disorder: No Hx Depression: No Hx Emotional Abuse: No Hx Physical Abuse: No Hx Substance Use: No - Past Surgical History Past Surgical History: Non-Contributing - Surgical History Hx Appendectomy: Yes - Anesthesia Hx Anesthesia: Yes Hx Anesthesia Reactions: No Hx Malignant Hyperthermia: No - Suicidal Assessment Feels Threatened In Home Enviroment: No Family/Social History - Physician Review Nursing Documentation Reviewed: Yes Family/Social History: No Known Family HX Smoking Status: Never Smoked Hx Alcohol Use: No Hx Substance Use: No Hx Substance Use Treatment: No Allergies/Home Meds Allergies/Adverse Reactions: Allergies Sulfa (Sulfonamide Antibiotics) Allergy (Verified 03/19/17 21:11) RASH ragweed Allergy (Uncoded 03/19/17 21:11) CONGESTION Review of Systems - Physician Review All systems were reviewed & negative as marked: Yes - Review of Systems Constitutional: absent: Fatigue, Weight Change, Fevers Eyes: absent: Vision Changes, Photophobia ENT: Hearing Changes Respiratory: absent: SOB, Cough Cardiovascular: absent: Chest Pain, Palpitations Gastrointestinal: absent: Abdominal Pain, Stool Changes Genitourinary Male: absent: Dysuria, Frequency Musculoskeletal: absent: Arthralgias, Back Pain Skin: absent: Rash, Pruritis, Skin Lesions Neurological: absent: Headache, Dizziness Endocrine: absent: Diaphoresis, Polyuria Hemo/Lymphatic: absent: Adenopathy, Easy Bleeding Psychiatric: absent: Anxiety Physical Exam Vital Signs Temp Pulse Resp BP Pulse Ox 03/19/17 21:13 98.0 F 84 18 190/100 H 96 Temperature: Afebrile Blood Pressure: Hypertensive (patient in complete denail about extremely elevated BP and was urged to seek treatment patient refused blood pressure treatment and is unwilling to wait in ER for blood pressure lowering medicine) Appearance: Positive for: Well-Appearing, Non-Toxic, Comfortable Pain Distress: None Mental Status: Positive for: Alert and Oriented X 3 - Systems Exam Head: Present: Atraumatic Pupils: Present: PERRL Extroacular Muscles: Present: EOMI Conjunctiva: Present: Normal Mouth: Present: Moist Mucous Membranes Pharnyx: No: ERYTHEMA, EXUDATE Neck: Present: Normal Range of Motion. No: Meningeal Signs Respiratory/Chest: Present: Clear to Auscultation, Good Air Exchange. No: Respiratory Distress Cardiovascular: Present: Regular Rate and Rhythm, Normal S1, S2. No: Murmurs Abdomen: Present: Normal Bowel Sounds. No: Tenderness, Distention Upper Extremity: Present: Normal Inspection (patient has a healing paranychia on the middle finger of his left hand, no signs of pus swelling erythema or pain to palpation; was re-dressed with bacitracin and loose guaze; patient told to keep wound more open to air ), Normal ROM, NORMAL PULSES. No: Cyanosis, Edema Lower Extremity: Present: Normal Inspection. No: Edema, CALF TENDERNESS Neurological: Present: GCS=15, CN II-XII Intact Skin: Present: Warm Psychiatric: Present: Alert, Oriented x 3, Normal Insight, Normal Concentration , Normal Affect Medical Decision Making ED Course and Treatment: 03/19/17 21:42 No more signs of infection Told to place bacitracin on wound with loose gauze and keep dry and clean patient was urged to take blood pressure medicine and he refused patient urged to go to PMD about blood pressure but insists that his blood pressure is only elevated when he is in the ER and that it will go down once he is home and he knows how to treat himself and feels fine patient is refusing all other forms of treatment not related to his finger the patient is ok to be discharged as per dr. arauz Disposition/Present on Arrival - Present on Arrival Any Indicators Present on Arrival: Yes History of DVT/PE: No History of Uncontrolled Diabetes: No Urinary Catheter: No History of Decub. Ulcer: No History Surgical Site Infection Following: None - Disposition Have Diagnosis and Disposition been Completed?: Yes Diagnosis: Visit for wound check, High blood pressure Disposition: HOME/ ROUTINE Disposition Time: 21:44 Patient Plan: Discharge Condition: UNKNOWN Discharge Instructions (ExitCare): Hypertensive Crisis (ED), Wound Infection ( ED) Additional Instructions: Please make sure to see your PMD for your high blood pressure; this is a silent killer and you will not be able to treat it once it is too late If you have any chest pain, shortness of breath, dizziness/headache please come back to the Emergency department for treatment. Please make sure to keep your wound clean dry and with loose gauze that was provided with bacitracin that was also provided It was a pleasure to treat you Have a great day
== END 2017-03-19 22:02 | disposition home or self-care (01) ==
LOC: ED 20:51
DX: Z51.89 Encounter for other specified aftercare (principal); I10 Essential (primary) hypertension

== ENCOUNTER 2017-03-21 00:05 | Emergency (ER) | payer MEDICAID ==
[2017-03-21 00:06] VITALS: BMI 32.5
[2017-03-21 00:32] VITALS: TEMP 98
[2017-03-21 01:16] VITALS: BP 186/107; PULSE 90
--- NOTE | 2017-03-21 01:32 | ED PDOC ---
Arrival/HPI - General Chief Complaint: Finger,Hand,&Wrist Time Seen by Provider: 03/21/17 01:06 Historian: Patient - History of Present Illness Narrative History of Present Illness (Text): 03/21/17 02:28 56 yo M presents for wound check to the L 3rd digit and is noted to have elevated BP. Patient denies any fever, chills, decrease in ROM, redness, swelling, d/c, headache, dizziness, CP, SOB, palpitations, N/V. Patient states that he believes that the antibiotics are causing his BP to be elevated, therefore he decided to stop taking them today. He admits to having elevated bp in the past, "but not this high," he states that medications to lower bp is not safe and does not want to take any and believes he does not need to take any, he states that he can lower his bp on his own with diet. Otherwise has no other complaints. Past Medical History - Provider Review Nursing Documentation Reviewed: Yes - Past History Past History: No Previous - Infectious Disease Hx of Infectious Diseases: None - Tetanus Immunization Tetanus Immunization: Unknown - Reproductive Currently : No - Past Medical History Past Medical History: No Previous - Cardiac Hx Cardiac Disorders: Yes Hx Hypertension: Yes Hx Peripheral Edema: Yes - Pulmonary Hx Respiratory Disorders: No - Neurological Hx Neurological Disorder: No - HEENT Hx HEENT Disorder: No - Renal Hx Renal Disorder: No - Endocrine/Metabolic Hx Endocrine Disorders: No - Hematological/Oncological Hx Blood Disorders: No - Integumentary Hx Dermatological Disorder: No Other/Comment: right foot and lower leg with redness - Musculoskeletal/Rheumatological Hx Musculoskeletal Disorders: Yes Hx Arthritis: Yes Hx Falls: No Hx Gout: Yes Other/Comment: GOUT, R KNEE PAIN, FASCIAL PAIN TO FEET - Gastrointestinal Hx Gastrointestinal Disorders: No - Genitourinary/Gynecological Hx Genitourinary Disorders: No - Psychiatric Hx Psychophysiologic Disorder: No Hx Depression: No Hx Emotional Abuse: No Hx Physical Abuse: No Hx Substance Use: No - Past Surgical History Past Surgical History: Non-Contributing - Surgical History Hx Appendectomy: Yes - Anesthesia Hx Anesthesia: Yes Hx Anesthesia Reactions: No Hx Malignant Hyperthermia: No - Suicidal Assessment Feels Threatened In Home Enviroment: No Family/Social History - Physician Review Nursing Documentation Reviewed: Yes Family/Social History: Unknown Family HX Smoking Status: Never Smoked Hx Alcohol Use: No Hx Substance Use: No Hx Substance Use Treatment: No Allergies/Home Meds Allergies/Adverse Reactions: Allergies Sulfa (Sulfonamide Antibiotics) Allergy (Verified 03/21/17 00:33) RASH ragweed Allergy (Uncoded 03/21/17 00:33) CONGESTION Review of Systems - Review of Systems Constitutional: Normal. absent: Fatigue, Weight Change, Fevers Respiratory: Normal. absent: SOB, Cough, Sputum Cardiovascular: Normal. absent: Chest Pain, Palpitations, Edema Musculoskeletal: Normal. absent: Arthralgias, Back Pain, Neck Pain Skin: Normal, Other (recent infection to the L 3rd digit). absent: Rash, Pruritis, Skin Lesions Neurological: Normal. absent: Headache, Dizziness, Focal Weakness Physical Exam - Physical Exam Narrative Physical Exam (Text): 03/21/17 02:26 GENERAL APPEARANCE: Patient is awake, alert, oriented x 3, in no acute distress. SKIN: Warm, dry; (-) cyanosis. EYES: (-) conjunctival pallor. ENMT: Mucous membranes moist. NECK: (-) tenderness, (-) stiffness, (-) lymphadenopathy, (-) JVD. CHEST AND RESPIRATORY: (-) rash, (-) chest wall tenderness. Lungs: (-) rales , (-) rhonchi, (-) wheezes, (-) rub; breath sounds equal bilaterally. HEART AND CARDIOVASCULAR: (-) irregularity; (-) murmur, (-) gallop, (-) rub. ABDOMEN AND GI: Soft; (-) distention, (-) tenderness, (-) palpable pulsatile mass. EXTREMITIES: (-) deformity; (-) purulent d/c, (-) erythema, (-) tenderness, (- ) edema, (-) calf tenderness. (+) distal pulses. NEURO AND PSYCH: Mental status as above. Cranial nerves grossly intact; strength symmetric. Vital Signs Temp Pulse Resp BP Pulse Ox 03/21/17 01:40 19 98 03/21/17 01:15 90 18 186/107 H 97 03/21/17 00:26 98.0 F 83 18 196/113 H 96 Medical Decision Making ED Course and Treatment: 03/21/17 02:24 56 yo M presents for wound check to the L 3rd digit and is noted to have elevated BP. Wound to the L 3rd digit is healing with no signs of worsening infection or decrease in ROM of the digit. Patient is also refusing to be treated for his elevated BP. He states that he would rather improve his BP on his own through diet without any other medical intervention being offered by the ER. Patient refuses further care, evaluation or treatment in the ER. Patient informed of the reasons for the following and planned treatment, which patient understands, however still refuses. Patient informed of the risk and benefits of treatment. Informed that the risk could include worsening of current conditions, undiagnosed conditions, disability or even . Patient understands the following risk and the benefits of treatment. Patient has the capacity to make decisions and still refuses treatment by RN, PA and ER MD. Patient encouraged to return to the ER at any time and to follow up with pmd and wound care center. - PA / INTERIOR DESIGN CONSULTANT / Resident Statement /DO has reviewed & agrees with the documentation as recorded. Disposition/Present on Arrival - Present on Arrival Any Indicators Present on Arrival: No History of DVT/PE: No History of Uncontrolled Diabetes: No Urinary Catheter: No History of Decub. Ulcer: No History Surgical Site Infection Following: None - Disposition Have Diagnosis and Disposition been Completed?: Yes Diagnosis: Visit for wound check, Hypertension Disposition: AGAINST MEDICAL ADVICE Disposition Time: 01:29 Patient Plan: Other (Pt left AMA) Condition: STABLE Discharge Instructions (ExitCare): Acute Wound Care (ED), Hypertension (ED), Against Medical Advice (ED) Print Language: KOSOVAN Referrals: Kevin Cervantes MD [Primary Care Provider] - Follow up with primary [facility] [Outside] - Follow up with primary Forms: [employer] (Croatian)
[2017-03-21 01:59] VITALS: RESP 19; O2SAT 98
== END 2017-03-21 01:40 | disposition left against medical advice (07) ==
LOC: ED 00:05
DX: I10 Essential (primary) hypertension (principal); Z51.89 Encounter for other specified aftercare

== ENCOUNTER 2017-04-11 19:12 | Emergency (ER) | payer MEDICAID ==
[2017-04-11 19:12] VITALS: BMI 32.5
[2017-04-11 19:23] VITALS: TEMP 98.5
--- NOTE | 2017-04-11 19:44 | ED PDOC ---
Arrival/HPI - General Chief Complaint: Abnormal Skin Integrity Time Seen by Provider: 04/11/17 19:40 Historian: Patient - History of Present Illness Narrative History of Present Illness (Text): 04/11/17 19:41 56yo male with PMhx of hypertension present for evaluation of left 3rd finger infection. He notes that I & D was done by Dr. Calix. He was given Augmentin for 7days. He states he keeps it wrap all the time with band aid. Finished the antibiotics and still having pain in the finger. Admit to mild purulent discharge whenever he changes the band aid. He otherwise denies fever, chills, swelling, any other complaint. Past Medical History - Provider Review Nursing Documentation Reviewed: Yes - Past History Past History: No Previous - Infectious Disease Hx of Infectious Diseases: None - Tetanus Immunization Tetanus Immunization: Unknown - Reproductive Currently : No - Past Medical History Past Medical History: No Previous - Cardiac Hx Cardiac Disorders: Yes Hx Hypertension: Yes Hx Peripheral Edema: Yes - Pulmonary Hx Respiratory Disorders: No - Neurological Hx Neurological Disorder: No - HEENT Hx HEENT Disorder: No - Renal Hx Renal Disorder: No - Endocrine/Metabolic Hx Endocrine Disorders: No - Hematological/Oncological Hx Blood Disorders: No - Integumentary Hx Dermatological Disorder: Yes Other/Comment: ABSCESS TO L 3RD FINGER. - Musculoskeletal/Rheumatological Hx Musculoskeletal Disorders: Yes Hx Arthritis: Yes Hx Falls: No Hx Gout: Yes Other/Comment: GOUT, R KNEE PAIN, FASCIAL PAIN TO FEET - Gastrointestinal Hx Gastrointestinal Disorders: No - Genitourinary/Gynecological Hx Genitourinary Disorders: No - Psychiatric Hx Psychophysiologic Disorder: No Hx Depression: No Hx Emotional Abuse: No Hx Physical Abuse: No Hx Substance Use: No - Past Surgical History Past Surgical History: Non-Contributing - Surgical History Hx Appendectomy: Yes - Anesthesia Hx Anesthesia: Yes Hx Anesthesia Reactions: No Hx Malignant Hyperthermia: No - Suicidal Assessment Feels Threatened In Home Enviroment: No Family/Social History - Physician Review Nursing Documentation Reviewed: Yes Family/Social History: Unknown Family HX Smoking Status: Never Smoked Hx Alcohol Use: No Hx Substance Use: No Hx Substance Use Treatment: No Allergies/Home Meds Allergies/Adverse Reactions: Allergies Sulfa (Sulfonamide Antibiotics) Allergy (Verified 04/11/17 19:18) RASH ragweed Allergy (Uncoded 04/11/17 19:18) CONGESTION Home Medications: Home Meds Medication Instructions Recorded Confirmed Amoxicillin/Clavulanate [Augmentin 1 tab PO BID 04/11/17 04/11/17 875 MG-125 MG Tab] Review of Systems - Physician Review All systems were reviewed & negative as marked: Yes - Review of Systems Constitutional: Normal Eyes: Normal ENT: Normal Respiratory: Normal Cardiovascular: Normal Gastrointestinal: Normal Genitourinary Male: Normal Musculoskeletal: Normal Skin: Other (LEft 3rd finger infection) Neurological: Normal Endocrine: Normal Hemo/Lymphatic: Normal Psychiatric: Normal Physical Exam Vital Signs Reviewed: Yes Vital Signs Temp Pulse Resp BP Pulse Ox 04/11/17 20:08 81 18 190/99 H 97 04/11/17 19:19 98.5 F 87 16 183/110 H 95 Temperature: Afebrile Blood Pressure: Normal Pulse: Regular Respiratory Rate: Normal Appearance: Positive for: Well-Appearing, Non-Toxic, Comfortable Pain Distress: None Mental Status: Positive for: Alert and Oriented X 3 - Systems Exam Head: Present: Atraumatic, Normocephalic Pupils: Present: PERRL Extroacular Muscles: Present: EOMI Conjunctiva: Present: Normal Mouth: Present: Moist Mucous Membranes Neck: Present: Normal Range of Motion Respiratory/Chest: Present: Clear to Auscultation, Good Air Exchange. No: Respiratory Distress, Accessory Muscle Use Cardiovascular: Present: Regular Rate and Rhythm, Normal S1, S2. No: Murmurs Abdomen: Present: Normal Bowel Sounds. No: Tenderness, Distention, Peritoneal Signs Back: Present: Normal Inspection Upper Extremity: Present: Normal Inspection. No: Cyanosis, Edema Lower Extremity: Present: Normal Inspection. No: Edema Neurological: Present: GCS=15, CN II-XII Intact, Speech Normal Skin: Present: Warm, Dry, Normal Color, Other (Tender left 3rd distal finger/ tuft. Healing abrasion noted on lateral finger. No erythema. No discharge. No swelling.). No: Rashes Psychiatric: Present: Alert, Oriented x 3, Normal Insight, Normal Concentration Medical Decision Making ED Course and Treatment: 04/11/17 20:08 Pt's with history of hypertension. He did not take his medication today. His BP improved in ED without medication. He denies headache. chest pain, focal weakness, SOB. He was placed on another Augmentin for 7days. Advised to keep finger covered all the time. Referred to his PMd/surgeon. TRT ED for any new symptoms. - Medication Orders Current Medication Orders: Discontinued Medications Acetaminophen (Tylenol 325mg Tab) 650 mg PO STAT STA Stop: 04/11/17 19:50 Last Admin: 04/11/17 19:56 Dose: 650 mg MAR Pain/Vitals Document 04/11/17 19:56 SE (Rec: 04/11/17 19:57 SE [id number]) Pain Reassessment Is This A Pain ReAssessment? No Sleep Is patient sleeping during reassessment? No Presence of Pain Presence of Pain Yes Pain Scale Used Pain Scale Used Numeric Location Left, Right or Bilateral Left Pain Location Body Site Finger Amoxicillin/Clavulanate Potassium (Augmentin 875 Mg-125 Mg Tab) 1 tab PO STAT STA PRN Reason: Protocol Stop: 04/11/17 19:49 Last Admin: 04/11/17 19:57 Dose: 1 tab Disposition/Present on Arrival - Present on Arrival Any Indicators Present on Arrival: No History of DVT/PE: No History of Uncontrolled Diabetes: No Urinary Catheter: No History of Decub. Ulcer: No History Surgical Site Infection Following: None - Disposition Have Diagnosis and Disposition been Completed?: Yes Diagnosis: Paronychia Disposition: HOME/ ROUTINE Disposition Time: 19:50 Patient Plan: Discharge Patient Problems: Current Active Problems Problem Status Onset Paronychia Acute Condition: STABLE Discharge Instructions (ExitCare): Paronychia (ED) Additional Instructions: Take medication as directed Follow up with your doctor/surgeon Return to ED for any new symptoms Prescriptions: Amoxicillin/Clavulanate [Augmentin 875 MG-125 MG] 1 tab PO BID #14 tab Referrals: Preston Calix MD [Staff Provider] - Follow up with primary Forms: [employer] (Chilean)
[2017-04-11] MEDS ORDERED: Amoxicillin-Clav 875-125 mg Tab PO STA (19:48)
[2017-04-11 20:09] VITALS: BP 190/99; PULSE 81; RESP 18; O2SAT 97
== END 2017-04-11 20:08 | disposition home or self-care (01) ==
LOC: ED 19:12
DX: L03.012 Cellulitis of left finger (principal); I10 Essential (primary) hypertension; Z88.2 Allergy status to sulfonamides

== ENCOUNTER 2017-04-25 14:38 | Emergency (ER) | payer MEDICAID ==
[2017-04-25 14:38] VITALS: BMI 32.5
--- NOTE | 2017-04-25 14:54 | ED PDOC ---
Arrival/HPI - General Time Seen by Provider: 04/25/17 14:52 Historian: Patient - History of Present Illness Narrative History of Present Illness (Text): 04/25/17 14:53 56 y/o male, pmh including htn (doesn't wanna take any antihypertensive), sulfa allergy, c/o rt. lower extremity pain and swelling for the past 2 weeks. Pt. stated that he has rt. lower extremity swelling on and off for the past 2 weeks , seen by Dr. Cordova today and here for the RLE venuous doppler to rule out DVT , no fever or chills, no chest pain or shortness of breath, no palpitation, no night sweat, no rash, no other medical or psychological complaints. Past Medical History - Provider Review Nursing Documentation Reviewed: Yes - Past History Past History: No Previous - Infectious Disease Hx of Infectious Diseases: None - Tetanus Immunization Tetanus Immunization: Unknown - Reproductive Currently : No - Past Medical History Past Medical History: No Previous - Cardiac Hx Cardiac Disorders: Yes Hx Hypertension: Yes Hx Peripheral Edema: Yes - Pulmonary Hx Respiratory Disorders: No - Neurological Hx Neurological Disorder: No - HEENT Hx HEENT Disorder: No - Renal Hx Renal Disorder: No - Endocrine/Metabolic Hx Endocrine Disorders: No - Hematological/Oncological Hx Blood Disorders: No - Integumentary Hx Dermatological Disorder: Yes Other/Comment: ABSCESS TO L 3RD FINGER. - Musculoskeletal/Rheumatological Hx Musculoskeletal Disorders: Yes Hx Arthritis: Yes Hx Falls: No Hx Gout: Yes Other/Comment: GOUT, R KNEE PAIN, FASCIAL PAIN TO FEET - Gastrointestinal Hx Gastrointestinal Disorders: No - Genitourinary/Gynecological Hx Genitourinary Disorders: No - Psychiatric Hx Psychophysiologic Disorder: No Hx Depression: No Hx Emotional Abuse: No Hx Physical Abuse: No Hx Substance Use: No - Past Surgical History Past Surgical History: Non-Contributing - Surgical History Hx Appendectomy: Yes - Anesthesia Hx Anesthesia: Yes Hx Anesthesia Reactions: No Hx Malignant Hyperthermia: No - Suicidal Assessment Feels Threatened In Home Enviroment: No Family/Social History - Physician Review Nursing Documentation Reviewed: Yes Family/Social History: Unknown Family HX Smoking Status: Never Smoked Hx Alcohol Use: No Hx Substance Use: No Hx Substance Use Treatment: No Allergies/Home Meds Allergies/Adverse Reactions: Allergies Sulfa (Sulfonamide Antibiotics) Allergy (Verified 04/25/17 15:10) RASH ragweed Allergy (Uncoded 04/25/17 15:10) CONGESTION Home Medications: Home Meds Medication Instructions Recorded Confirmed Amoxicillin/Clavulanate [Augmentin 1 tab PO BID 04/11/17 04/25/17 875 MG-125 MG Tab] Review of Systems - Review of Systems Constitutional: absent: Fatigue, Fevers Eyes: absent: Vision Changes ENT: absent: Hearing Changes Respiratory: absent: SOB, Cough Cardiovascular: absent: Chest Pain Gastrointestinal: absent: Abdominal Pain, Nausea, Vomiting Musculoskeletal: Myalgias. absent: Arthralgias, Neck Pain, Joint Swelling Skin: absent: Rash, Pruritis, Skin Lesions, Laceration, Abscess Psychiatric: absent: Anxiety, Depression, Suicidal Ideation Physical Exam Vital Signs Temp Pulse Resp BP Pulse Ox 04/25/17 16:25 18 181/104 H 04/25/17 15:05 98.8 F 106 H 18 161/114 H 96 - Systems Exam Head: Present: Atraumatic, Normocephalic Pupils: Present: PERRL Extroacular Muscles: Present: EOMI Conjunctiva: Present: Normal Mouth: Present: Moist Mucous Membranes Neck: Present: Normal Range of Motion Respiratory/Chest: Present: Clear to Auscultation, Good Air Exchange. No: Respiratory Distress, Accessory Muscle Use Cardiovascular: Present: Regular Rate and Rhythm, Normal S1, S2, Other (no pedal edema). No: Murmurs Abdomen: Present: Normal Bowel Sounds. No: Tenderness, Distention, Peritoneal Signs Back: Present: Normal Inspection Upper Extremity: Present: Normal Inspection. No: Cyanosis, Edema Lower Extremity: Present: Normal Inspection, Other (RLE: +swelling noted on the rt. lower extremity with no acute cellulitis or streaking, no ulcers, FROM without limitation, sensation intact, motor 5/5, +DPPT pulses, capillary refill < 2 seconds, neurovascular intact. ). No: Edema Neurological: Present: GCS=15, Speech Normal, Motor Func Grossly Intact, Gait Normal, Memory Normal Skin: Present: Warm, Dry, Normal Color. No: Rashes Psychiatric: Present: Alert, Oriented x 3, Normal Insight, Normal Concentration Medical Decision Making ED Course and Treatment: 04/25/17 15:01 -labs -RLE venuous doppler -observe and reassess 04/25/17 15:23 -Elevated BP noted and asymptomatic, refused antihypertensive medications. 04/25/17 15:59 -RLE venuous doppler: as per preliminary report, no acute DVT 04/25/17 16:28 -Labs are non-significant, CK 595, IVF ordered. -Called out to Dr. Cordova. 04/25/17 16:36 -Still waiting for call back from Dr. Cordova, still elevated BP and refused to be corrected, stated that he wants to go without waiting for any call backs or receive any further treatment. -Pt. request to sign out against medical advice. -AMA AMA ER The patient refuses to stay in the Emergency Room (ER) to continue the care and wishes to leave the emergency department against my medical advice. Patient was told that staying in the ER is necessary and a full explanation of the reasons why was given, and understood by the patient with alert and oriented x4. The risk of leaving were explained in laymans term and including but not limited to hypertension, myocardial infarction, stroke, dissection, cardiopulmonary disease, neurological disease, osteomyolitis, cellulitis, organ failure, pain, worsening of condition, permanent disability and from an undiagnosed or untreated condition. The patient accepts these risks, and is in my judgment is competent and capable of understanding the clinical situation and explanation of the risk of leaving. Patient was given the opportunity to ask questions and change mind. The patient was instructed regarding the best care for the present symptoms, and to follow up as soon as possible with the primary care doctor including specialist or return to the emergency department at an y time for continuing care. -You sign out against medical advice. Please follow up with your own pmd and Dr. Cordova within 24 hours, return to the ER for any new or worsening signs or symptoms. - Lab Interpretations Lab Results: 04/25/17 15:15 04/25/17 15:15 Lab Results 04/25/17 15:15: WBC 9.9, RBC 4.64, Hgb 14.5, Hct 41.9 L, MCV 90.3, MCH 31.3, MCHC 34.6, RDW 13.8, Plt Count 265, MPV 9.9, Gran % 55.8, Lymph % (Auto) 27.8, Loup % (Auto) 10.1 H, Eos % (Auto) 5.8 H, Baso % (Auto) 0.5, Gran # 5.55, Lymph # 2.8, Loup # 1.0 H, Eos # 0.6, Baso # 0.05 04/25/17 15:15: Sodium 141, Potassium 3.8, Chloride 103, Carbon Dioxide 27, Anion Gap 14, BUN 21, Creatinine 0.9, Est GFR ( Amer) > 60, Est GFR (Non- Af Amer) > 60, Random Glucose 113 H, Calcium 9.8, Total Bilirubin 0.4, AST 51, ALT 56, Alkaline Phosphatase 85, Total Creatine Kinase 595 H, CK-MB (CK-2) 8.9 H , CK-MB (CK-2) % 1.5 L, NT-Pro-B Natriuret Pep 67.3, Total Protein 7.7, Albumin 4.5, Globulin 3.2, Albumin/Globulin Ratio 1.4 I have reviewed the lab results: Yes Interpretation: Abnormal lab values (CK 595) - RAD Interpretation Radiology Orders: 04/25/17 15:11 DUPLEX LOWER EXTRM VEIN RIGHT [US] Stat -RLE venuous doppler: as per preliminary report, no acute DVT Teenage Babysitter: Radiologist - Medication Orders Current Medication Orders: Discontinued Medications Sodium Chloride (Sodium Chloride 0.9%) 1,000 mls @ 999 mls/hr IV .Q1H1M STA Stop: 04/25/17 17:27 - PA / SCRAPER HAND / Resident Statement / has reviewed & agrees with the documentation as recorded. Disposition/Present on Arrival - Present on Arrival Any Indicators Present on Arrival: No History of DVT/PE: No History of Uncontrolled Diabetes: No Urinary Catheter: No History of Decub. Ulcer: No History Surgical Site Infection Following: None - Disposition Have Diagnosis and Disposition been Completed?: Yes Diagnosis: Non-compliance, HTN (hypertension), Leg swelling Disposition: AGAINST MEDICAL ADVICE Disposition Time: 16:38 Condition: GOOD Additional Instructions: -You sign out against medical advice. Please follow up with your own pmd and Dr. Cordova within 24 hours, return to the ER for any new or worsening signs or symptoms. Referrals: Latasha Cordova DPM [Staff Provider] - Follow up with primary Forms: [employer] (Tajik)
[2017-04-25 15:10] VITALS: PULSE 106; RESP 18; TEMP 98.8; O2SAT 96
[2017-04-25 15:53] LABS: BASO # 0.05 K/mm3 (0.0-2.0); BASO % 0.5 % (0.0-3.0); EOS # 0.6 (0.0-0.7); EOS % 5.8 % (1.5-5.0); GRAN # 5.55 (1.4-6.5); GRAN % 55.8 % (50.0-68.0); HEMATOCRIT 41.9 % (42.0-52.0); LYMPH # 2.8 (1.2-3.4); LYMPH % 27.8 % (22.0-35.0); MEAN CELL VOLUME 90.3 fl (80.0-105.0); MEAN CORPUSCULAR HEMOGLOBIN 31.3 pg (25.0-35.0); MEAN CORPUSCULAR HGB CONC 34.6 g/dl (31.0-37.0); MEAN PLATELET VOLUME 9.9 fl (7.0-11.0); MONO % 10.1 % (1.0-6.0); RED CELL DISTRIBUTION WIDTH 13.8 % (11.5-14.5); WHITE BLOOD COUNT 9.9 10^3/ul (4.5-11.0)
[2017-04-25 16:12] LABS: ALB/GLOB RATIO 1.4 (1.1-1.8); ALKALINE PHOSPHATASE 85 U/L (38-126); ALT/SGPT 56 U/L (7-56); AST/SGOT 51 U/L (17-59); BILIRUBIN,TOTAL 0.4 mg/dL (0.2-1.3); BLOOD UREA NITROGEN 21 mg/dL (7-21); CALCIUM 9.8 mg/dL (8.4-10.5); CARBON DIOXIDE 27 mmol/L (21-33); CHLORIDE 103 mmol/L (98-107); GFR AFRICAN-AMERICAN > 60; GLUCOSE,RANDOM 113 mg/dL (70-110); POTASSIUM 3.8 mmol/L (3.6-5.0); SODIUM 141 mmol/L (132-148); TOTAL PROTEIN 7.7 g/dL (5.8-8.3)
[2017-04-25 16:26] VITALS: BP 181/104
[2017-04-25] MEDS ORDERED: Sodium Chloride 0.9% 1,000 ML IV STA (16:27)
--- NOTE | 2017-04-25 19:28 | US ---
PROCEDURE: Right lower extremity venous US HISTORY: Leg pain and swelling. Evaluate for DVT. PHYSICIAN(S): Braulio Champion M.D. TECHNIQUE: Duplex sonography and color-flow Doppler with graded compression were used to evaluate the deep venous system of the right lower extremity. FINDINGS: The visualized deep venous system of the right lower extremity is sonographically normal and compressible. Normal waveforms and augmentation are seen. There is no sonographic evidence for deep venous thrombosis in the visualized segments of the right lower extremity. IMPRESSION: 1. No sonographic evidence for deep venous thrombosis in the visualized segments of the right lower extremity.
== END 2017-04-25 16:55 | disposition left against medical advice (07) ==
LOC: ED 14:38
DX: M79.89 Other specified soft tissue disorders (principal); I10 Essential (primary) hypertension; Z88.2 Allergy status to sulfonamides

== ENCOUNTER 2017-06-30 16:50 | Emergency (ER) | payer MEDICAID ==
[2017-06-30 16:50] VITALS: BMI 32.5
--- NOTE | 2017-06-30 18:10 | ED PDOC ---
Arrival/HPI - General Chief Complaint: Finger,Hand,&Wrist Time Seen by Provider: 06/30/17 17:47 Historian: Patient - History of Present Illness Narrative History of Present Illness (Text): 06/30/17 18:00 This 56 y/o male, pmh including htn (doesn't wanna take any antihypertensive), sulfa allergy, presents to this ED c/o left middle finger tip chronic rash x 2-1 /2 month. Patient stated he has seen Dr. Calix for chronic leg ulcers, which has healed well as per patient. Patient stated left 3rd finger tip rash is not painful, Patient admits he hit his finger last week, which it mad finger painful for a few days. Patient denies fever, swelling hand, discharge, weakness, paresthesias, or change of ROM on the affected finger. Time/Duration: Other (see hpi) Context: Home Past Medical History - Provider Review Nursing Documentation Reviewed: Yes - Past History Past History: No Previous - Infectious Disease Hx of Infectious Diseases: None - Tetanus Immunization Tetanus Immunization: Unknown - Past Medical History Past Medical History: No Previous - Cardiac Hx Cardiac Disorders: Yes Hx Hypertension: Yes Hx Peripheral Edema: Yes - Pulmonary Hx Respiratory Disorders: No - Neurological Hx Neurological Disorder: No - HEENT Hx HEENT Disorder: No - Renal Hx Renal Disorder: No - Endocrine/Metabolic Hx Endocrine Disorders: No - Hematological/Oncological Hx Blood Disorders: No - Integumentary Hx Dermatological Disorder: Yes Other/Comment: ABSCESS TO L 3RD FINGER. - Musculoskeletal/Rheumatological Hx Musculoskeletal Disorders: Yes Hx Arthritis: Yes Hx Falls: No Hx Gout: Yes Other/Comment: GOUT, R KNEE PAIN, FASCIAL PAIN TO FEET - Gastrointestinal Hx Gastrointestinal Disorders: No - Genitourinary/Gynecological Hx Genitourinary Disorders: No - Psychiatric Hx Psychophysiologic Disorder: No Hx Depression: No Hx Emotional Abuse: No Hx Physical Abuse: No Hx Substance Use: No - Past Surgical History Past Surgical History: Non-Contributing - Surgical History Hx Appendectomy: Yes - Anesthesia Hx Anesthesia: Yes Hx Anesthesia Reactions: No Hx Malignant Hyperthermia: No - Suicidal Assessment Feels Threatened In Home Enviroment: No Family/Social History - Physician Review Nursing Documentation Reviewed: Yes Family/Social History: Other (noncontributory) Smoking Status: Never Smoked Hx Alcohol Use: No Hx Substance Use: No Hx Substance Use Treatment: No Allergies/Home Meds Allergies/Adverse Reactions: Allergies Sulfa (Sulfonamide Antibiotics) Allergy (Verified 06/30/17 17:15) RASH ragweed Allergy (Uncoded 06/30/17 17:15) CONGESTION Review of Systems - Review of Systems Constitutional: Normal. absent: Fatigue, Weight Change, Fevers Eyes: Normal ENT: Normal Respiratory: Normal Cardiovascular: Normal Gastrointestinal: Normal Genitourinary Male: Normal Musculoskeletal: Other (see hpi) Skin: Normal Neurological: Normal Endocrine: Normal Hemo/Lymphatic: Normal Psychiatric: Normal Physical Exam Vital Signs Temp Pulse Resp BP Pulse Ox 06/30/17 18:18 98.7 F 100 H 18 169/98 H 95 Temperature: Afebrile Blood Pressure: Normal Pulse: Regular Respiratory Rate: Normal Appearance: Positive for: Well-Appearing, Non-Toxic, Comfortable Pain Distress: None Mental Status: Positive for: Alert and Oriented X 3 - Systems Exam Head: Present: Atraumatic, Normocephalic Pupils: Present: PERRL Extroacular Muscles: Present: EOMI Conjunctiva: Present: Normal Mouth: Present: Moist Mucous Membranes Neck: Present: Normal Range of Motion Respiratory/Chest: Present: Clear to Auscultation, Good Air Exchange. No: Respiratory Distress, Accessory Muscle Use Cardiovascular: Present: Regular Rate and Rhythm, Normal S1, S2. No: Murmurs Abdomen: Present: Normal Bowel Sounds. No: Tenderness, Distention, Peritoneal Signs Back: Present: Normal Inspection Upper Extremity: Present: Normal ROM, NORMAL PULSES, Neurovascularly Intact, Capillary Refill < 2s, Other ((+) blister like rash, with scaly area, and dry skin around left 3rd diatl finger. (+) ther is a tip of finger nail fungal infection. No cellutis, drainage or tenderness. ). No: Cyanosis, Edema Lower Extremity: Present: Normal Inspection. No: Edema Neurological: Present: GCS=15, CN II-XII Intact, Speech Normal, Motor Func Grossly Intact, Normal Sensory Function, Normal Cerebellar Funct, Gait Normal Skin: Present: Warm, Dry, Normal Color. No: Rashes Psychiatric: Present: Alert, Oriented x 3, Normal Insight, Normal Concentration Medical Decision Making ED Course and Treatment: 06/30/17 18:54 Dr. Crawford ED physician examined patient. He recommended to removed affected fingernail, and to referred patient to f/u equipment lead. 06/30/17 19:13 Re-evaluation. Patient feels better. Discussed results and plan with patient who expresses understanding. All questions answered and there is agreement with the plan to discharge home with instructions. Patient stable for discharge. Return if symptoms persist or worsen. Patient was recommended to f/u Distribution Systems Serviceperson in 1-2 days. to clean wound daily with soap and water. And to keep wound clean and dry the rest of the day. Return to emergency if symptoms worsen. Re-evaluation Time: 19:14 Reassessment Condition: Re-examined, Improved - RAD Interpretation Narrative RAD Interpretations (Text): 06/30/17 19:14 Finger x-rays: no fx or FB Radiology Orders: 06/30/17 17:47 HAND LEFT 3RD DIGIT (FINGER) [RAD] Stat - Procedure PROCEDURE NOTE (Text): 06/30/17 19:00 PROCEDURE: WOUND CARE AND FINGER NAIL REMOVAL Performed by the emergency provider Consent: Informed consent, after discussion of the risks, benefits, and alternatives to the procedure was obtained. Timeout: A timeout to verify the correct patient, procedure, and site was performed. Indication: onychomycosis Procedure Site: left 3rd finger nail removal Preparation: The wound was cleaned with NS and [place]. The area was prepped and draped in the usual sterile fashion. Procedure: Digital block was performed, with Lidocaine 1%, without Epi. Approx. 4 cc. Finger nail was completely removed. The site was dressed with clean, dry, sterile dressing. Post-procedure: Good closure and hemostasis. The patient tolerated the procedure well and there were no complications. CSM remains intact. Disposition/Present on Arrival - Present on Arrival Any Indicators Present on Arrival: No History of DVT/PE: No History of Uncontrolled Diabetes: No Urinary Catheter: No History of Decub. Ulcer: No History Surgical Site Infection Following: None - Disposition Have Diagnosis and Disposition been Completed?: Yes Diagnosis: Onychomycosis Disposition: HOME/ ROUTINE Disposition Time: 19:20 Patient Plan: Discharge Patient Problems: Current Active Problems Problem Status Onset Onychomycosis Acute Condition: GOOD Discharge Instructions (ExitCare): Skin Yeast Infection (ED) Additional Instructions: Call private doctor for follow up visit in 1-2 days. Also, call Distribution Systems Serviceperson for revaluation in 2-3 days. Keep wound clean and dry , and you can change wound dressing at least every 2 days. Return to emergency if wound becomes painful, drainage, swelling. Do not drive or operate machinery the day that you take Percocet. Prescriptions: oxyCODONE/Acetaminophen [Percocet 5/325 mg Tab] 1 ea PO Q4H PRN #5 tab PRN Reason: Pain, Severe (8-10) Referrals: Lilibeth Khan MD [Staff Provider] - Follow up with primary Forms: [employer] (Portuguese)
[2017-06-30] MEDS ORDERED: Lidocaine 1% Inj (20ml) ONE (18:36)
[2017-06-30 19:32] VITALS: BP 160/84; PULSE 77; RESP 16; TEMP 97.8; O2SAT 100
--- NOTE | 2017-07-01 15:24 | RAD ---
PROCEDURE: Left middle finger radiographs. HISTORY: finger infection COMPARISON: None. TECHNIQUE: AP radiograph of the left hand, as well as spot oblique and lateral images of left middle finger were obtained. FINDINGS: LEFT MIDDLE FINGER: Left middle finger normal, without fracture of focal lesion. Remainder of the left hand (as seen on the AP view) is grossly unremarkable. JOINTS: Moderate arthritic changes noted in the left hand more prominent at the distal interphalangeal joints. SOFT TISSUES: Diffuse soft tissue swelling seen in the left middle finger without evidence of soft tissue pneumatosis or foreign body P OTHER FINDINGS: None. IMPRESSION: Diffuse soft tissue swelling of the left middle finger without evidence of fracture dislocation or radiopaque foreign body. Moderate arthritic changes more prominent at the distal interphalangeal joints.
== END 2017-06-30 19:32 | disposition home or self-care (01) ==
LOC: ED 16:50
DX: B35.1 Tinea unguium (principal)

== ENCOUNTER 2017-08-21 13:47 | Emergency (ER) | payer MEDICAID ==
[2017-08-21 13:49] VITALS: BMI 32.5
== END 2017-08-21 14:06 | disposition left against medical advice (07) ==
LOC: ED 13:47
DX: Z02.89 Encounter for other administrative examinations (principal); K13.79 Other lesions of oral mucosa

== ENCOUNTER 2017-09-27 22:50 | Emergency (ER) | payer MEDICAID ==
[2017-09-27 23:01] VITALS: BMI 33.9
[2017-09-27 23:06] VITALS: TEMP 98.4
--- NOTE | 2017-09-27 23:37 | ED PDOC ---
Arrival/HPI - General Chief Complaint: Cough, Cold, Congestion Time Seen by Provider: 09/27/17 22:58 Historian: Patient - History of Present Illness Narrative History of Present Illness (Text): 09/27/17 23:34 56yo male with present with 2days history of subjective fever, clear productive cough, nasal congestion, facial pressure and pain. States he did not take any medication for his symptoms. Denies sick contact, SOB, chest pain, sick contact , travel, any other complaint. Past Medical History - Provider Review Nursing Documentation Reviewed: Yes - Past History Past History: No Previous - Infectious Disease Hx of Infectious Diseases: None - Tetanus Immunization Tetanus Immunization: Unknown - Past Medical History Past Medical History: No Previous - Cardiac Hx Cardiac Disorders: Yes Hx Hypertension: Yes Hx Peripheral Edema: Yes - Pulmonary Hx Respiratory Disorders: No - Neurological Hx Neurological Disorder: No - HEENT Hx HEENT Disorder: No - Renal Hx Renal Disorder: No - Endocrine/Metabolic Hx Endocrine Disorders: No - Hematological/Oncological Hx Blood Disorders: No - Integumentary Hx Dermatological Disorder: Yes Other/Comment: ABSCESS TO L 3RD FINGER. - Musculoskeletal/Rheumatological Hx Musculoskeletal Disorders: Yes Hx Arthritis: Yes Hx Falls: No Hx Gout: Yes Other/Comment: GOUT, R KNEE PAIN, FASCIAL PAIN TO FEET - Gastrointestinal Hx Gastrointestinal Disorders: No - Genitourinary/Gynecological Hx Genitourinary Disorders: No - Psychiatric Hx Psychophysiologic Disorder: No Hx Depression: No Hx Emotional Abuse: No Hx Physical Abuse: No Hx Substance Use: No - Past Surgical History Past Surgical History: Non-Contributing - Surgical History Hx Appendectomy: Yes - Anesthesia Hx Anesthesia: Yes Hx Anesthesia Reactions: No Hx Malignant Hyperthermia: No - Suicidal Assessment Feels Threatened In Home Enviroment: No Family/Social History - Physician Review Nursing Documentation Reviewed: Yes Family/Social History: Unknown Family HX Smoking Status: Never Smoked Hx Alcohol Use: No Hx Substance Use: No Hx Substance Use Treatment: No Allergies/Home Meds Allergies/Adverse Reactions: Allergies Sulfa (Sulfonamide Antibiotics) Allergy (Verified 06/30/17 17:15) RASH ragweed Allergy (Uncoded 06/30/17 17:15) CONGESTION Review of Systems - Physician Review All systems were reviewed & negative as marked: Yes - Review of Systems Constitutional: Normal, Fevers Eyes: Normal ENT: Rhinorrhea Respiratory: Cough. absent: SOB, Sputum, Wheezing Cardiovascular: Normal Gastrointestinal: Normal Genitourinary Male: Normal Musculoskeletal: Normal Skin: Normal Neurological: Normal Endocrine: Normal Hemo/Lymphatic: Normal Psychiatric: Normal Physical Exam Vital Signs Reviewed: Yes Vital Signs Temp Pulse Resp Pulse Ox 09/27/17 23:01 98.4 F 96 H 16 96 Temperature: Afebrile Blood Pressure: Normal Pulse: Regular Respiratory Rate: Normal Appearance: Positive for: Well-Appearing, Non-Toxic, Comfortable Pain Distress: None Mental Status: Positive for: Alert and Oriented X 3 - Systems Exam Head: Present: Atraumatic, Normocephalic Pupils: Present: PERRL Extroacular Muscles: Present: EOMI Conjunctiva: Present: Normal Ears: Present: Normal Mouth: Present: Moist Mucous Membranes Pharnyx: Present: Normal Nose (Internal): Present: Boggy (B/L), Other (Tenderness over the maxillary sinus) Neck: Present: Normal Range of Motion Respiratory/Chest: Present: Clear to Auscultation, Good Air Exchange. No: Respiratory Distress, Accessory Muscle Use, Wheezes, Decreased Breath Sounds, Rales, Retracting, Rhonchi Cardiovascular: Present: Regular Rate and Rhythm, Normal S1, S2. No: Murmurs Abdomen: No: Tenderness, Distention, Peritoneal Signs Back: Present: Normal Inspection Upper Extremity: Present: Normal Inspection. No: Cyanosis, Edema Lower Extremity: Present: Normal Inspection. No: Edema Neurological: Present: GCS=15, CN II-XII Intact, Speech Normal Skin: Present: Warm, Dry, Normal Color. No: Rashes Psychiatric: Present: Alert, Oriented x 3, Normal Insight, Normal Concentration Medical Decision Making ED Course and Treatment: 09/28/17 00:15 PT in ED for stated. He had tenderness over his maxillary sinus CXR NAD He will be tx with Augmentin for sinusitis. Referred to his PMD. - RAD Interpretation Radiology Orders: 09/27/17 23:07 CHEST TWO VIEWS (PA/LAT) [RAD] Stat - Medication Orders Current Medication Orders: Guaifenesin/Dextromethorphan (Robitussin Dm) 10 ml PO Q4H STA Stop: 09/28/17 00:11 Loratadine (Claritin) 10 mg PO ONCE ONE Stop: 09/28/17 00:10 Disposition/Present on Arrival - Present on Arrival Any Indicators Present on Arrival: No History of DVT/PE: No History of Uncontrolled Diabetes: No Urinary Catheter: No History of Decub. Ulcer: No History Surgical Site Infection Following: None - Disposition Have Diagnosis and Disposition been Completed?: Yes Diagnosis: Sinusitis, Bronchitis Disposition: HOME/ ROUTINE Disposition Time: 00:15 Patient Plan: Discharge Condition: STABLE Discharge Instructions (ExitCare): Sinusitis in Adults, Acute Bronchitis, Adult (DC) Additional Instructions: Take medication as directed Follow up with your Doctor Return to ED for any new or worsening symptoms Prescriptions: Amoxicillin/Clavulanate [Augmentin 875 MG-125 MG] 1 tab PO BID #14 tab Benzonatate [Tessalon Perle] 100 mg PO TID #30 capsule Loratadine/Pseudoephedrine [Claritin-D 24 Hour Tablet] 1 each PO DAILY #20 tab.er.24h Forms: [facility] (Urdu)
[2017-09-28] MEDS ORDERED: guaiFENesin DM 200 mg-20 mg/10 ml UD PO STA (00:10)
[2017-09-28] MEDS ORDERED: Amoxicillin-Clav 875-125 mg Tab PO STA (00:11)
[2017-09-28 00:38] VITALS: BP 132/78; PULSE 89; RESP 18; O2SAT 98
--- NOTE | 2017-09-28 13:17 | RAD ---
HISTORY: cough COMPARISON: Comparison chest 09/23/2015. TECHNIQUE: Chest PA and lateral FINDINGS: LUNGS: The interstitial markings are increased and coarsened with micronodular appearance. Rule out the interstitial infiltrates edema or interstitial fibrosis. In addition, there is a small approximately 8 mm x 4.5 mm nodular density located in the left lateral mid upper/mid lung zone (between the left anterior 2nd and 3rd ribs) which could represent a granuloma. Follow-up CT scan of the chest recommended to exclude neoplasm. PLEURA: No significant pleural effusion identified. No pneumothorax apparent. CARDIOVASCULAR: Cardiomegaly. OSSEOUS STRUCTURES: Mild multilevel degenerative spondylosis of the thoracic spine. Chronic anterior wedge deformities of a few upper/ mid thoracic segments felt to be degenerative. . VISUALIZED UPPER ABDOMEN: Normal. OTHER FINDINGS: None. IMPRESSION: The interstitial markings are increased and coarsened with micronodular appearance. Rule out the interstitial infiltrates edema or interstitial fibrosis. In addition, there is a small approximately 8 mm x 4.5 mm nodular density located in the left lateral mid upper/mid lung zone (between the left anterior 2nd and 3rd ribs) which could represent a granuloma. Follow-up CT scan of the chest recommended to exclude neoplasm. Note this report was placed in PA review folder folder for followup.
== END 2017-09-28 00:33 | disposition home or self-care (01) ==
LOC: ED 22:50
DX: J32.9 Chronic sinusitis, unspecified (principal); J40 Bronchitis, not specified as acute or chronic

== ENCOUNTER 2017-10-06 22:23 | Emergency (ER) | payer MEDICAID ==
[2017-10-06 22:24] VITALS: BMI 33.9
[2017-10-06 22:45] VITALS: TEMP 98.1; O2SAT 98
[2017-10-06] MEDS ORDERED: Albuterol-Ipratrop 3 mg / 0.5 (3 ml) UD IH STA (22:59)
--- NOTE | 2017-10-06 22:59 | ED PDOC ---
Arrival/HPI - General Chief Complaint: Cough, Cold, Congestion Time Seen by Provider: 10/06/17 22:32 Historian: Patient - History of Present Illness Narrative History of Present Illness (Text): 10/06/17 22:57 Lupillo Rios is a 56 year old male, whose past medical history includes hypertension, who presents to the Emergency department complaining of chest congestion for the past few days. Patient reports associated cough. Patient states he was seen on 09/27/2017 for similar complaints, diagnosed with bronchits/sinusitis, and discharged home. Patient denies any fever, chills, chest pain, shortness of breath, nausea, vomiting, diarrhea, urinary symptoms, back pain, neck pain, headache, dizziness, or any other complaints. Symptom Onset: Gradual Symptom Course: Unchanged Activities at Onset: Light Context: Home Past Medical History - Provider Review Nursing Documentation Reviewed: Yes - Past History Past History: No Previous - Infectious Disease Hx of Infectious Diseases: None - Tetanus Immunization Tetanus Immunization: Unknown - Past Medical History Past Medical History: No Previous - Cardiac Hx Cardiac Disorders: Yes Hx Hypertension: Yes Hx Peripheral Edema: Yes - Pulmonary Hx Respiratory Disorders: No - Neurological Hx Neurological Disorder: No - HEENT Hx HEENT Disorder: No - Renal Hx Renal Disorder: No - Endocrine/Metabolic Hx Endocrine Disorders: No - Hematological/Oncological Hx Blood Disorders: No - Integumentary Hx Dermatological Disorder: Yes Other/Comment: ABSCESS TO L 3RD FINGER. - Musculoskeletal/Rheumatological Hx Musculoskeletal Disorders: Yes Hx Arthritis: Yes Hx Falls: No Hx Gout: Yes Other/Comment: GOUT, R KNEE PAIN, FASCIAL PAIN TO FEET - Gastrointestinal Hx Gastrointestinal Disorders: No - Genitourinary/Gynecological Hx Genitourinary Disorders: No - Psychiatric Hx Psychophysiologic Disorder: No Hx Depression: No Hx Emotional Abuse: No Hx Physical Abuse: No Hx Substance Use: No - Past Surgical History Past Surgical History: Non-Contributing - Surgical History Hx Appendectomy: Yes - Anesthesia Hx Anesthesia: Yes Hx Anesthesia Reactions: No Hx Malignant Hyperthermia: No - Suicidal Assessment Feels Threatened In Home Enviroment: No Family/Social History - Physician Review Nursing Documentation Reviewed: Yes Family/Social History: Unknown Family HX Smoking Status: Never Smoked Hx Alcohol Use: No Hx Substance Use: No Hx Substance Use Treatment: No Allergies/Home Meds Allergies/Adverse Reactions: Allergies Sulfa (Sulfonamide Antibiotics) Allergy (Verified 06/30/17 17:15) RASH ragweed Allergy (Uncoded 06/30/17 17:15) CONGESTION Review of Systems - Physician Review All systems were reviewed & negative as marked: Yes - Review of Systems Constitutional: Normal. absent: Fevers Eyes: Normal ENT: Normal Respiratory: Cough, Other (+chest congestion) Gastrointestinal: Normal. absent: Abdominal Pain, Diarrhea, Nausea, Vomiting Genitourinary Male: Normal. absent: Dysuria, Frequency, Hematuria, Urinary Output Changes Musculoskeletal: Normal. absent: Back Pain, Neck Pain Skin: Normal. absent: Rash Neurological: Normal. absent: Headache, Dizziness Endocrine: Normal Hemo/Lymphatic: Normal Psychiatric: Normal Physical Exam Vital Signs Reviewed: Yes Vital Signs Temp Pulse Resp BP Pulse Ox 10/07/17 02:05 85 18 145/84 98 10/07/17 00:24 82 18 144/80 97 10/06/17 22:37 98.1 F 90 16 158/86 H 98 Temperature: Afebrile Blood Pressure: Normal Pulse: Regular Respiratory Rate: Normal Appearance: Positive for: Well-Appearing, Non-Toxic, Comfortable Pain Distress: None Mental Status: Positive for: Alert and Oriented X 3 - Systems Exam Head: Present: Atraumatic, Normocephalic Pupils: Present: PERRL Extroacular Muscles: Present: EOMI Conjunctiva: Present: Normal Mouth: Present: Moist Mucous Membranes Neck: Present: Normal Range of Motion Respiratory/Chest: Present: Clear to Auscultation, Good Air Exchange. No: Respiratory Distress, Accessory Muscle Use Cardiovascular: Present: Regular Rate and Rhythm, Normal S1, S2. No: Murmurs Abdomen: No: Tenderness, Distention, Peritoneal Signs Back: Present: Normal Inspection Upper Extremity: Present: Normal Inspection. No: Cyanosis, Edema Lower Extremity: Present: Normal Inspection. No: Edema Neurological: Present: GCS=15, CN II-XII Intact, Speech Normal Skin: Present: Warm, Dry, Normal Color. No: Rashes Psychiatric: Present: Alert, Oriented x 3, Normal Insight, Normal Concentration Medical Decision Making ED Course and Treatment: 10/06/17 22:58 Impression: 56 year old male complaining of chest congestion and cough for the past few days. Plan: -- Chest X-ray -- Duoneb -- Reassess and disposition Prior Visits: Notes and results from previous visits were reviewed. On 09/27/2017, pt was seen in the Emergency department for subjective fever, productive cough, nasal congestion, facial pressure/pain. Patient was diagnosed with bronchitis/sinusitis and discharhed home for Augmentin, Tessalon Perles, Claritic-D. Chest X-ray performed, shows: interstitial markings are increased and coarsened with micronodular appearance. Rule out the interstitial infiltrates edema or interstitial fibrosis. In addition, there is a small approximately 8 mm x 4.5 mm nodular density located in the left lateral mid upper/mid lung zone (between the left anterior 2nd and 3rd ribs) which could represent a granuloma. Follow-up CT scan of the chest recommended to exclude neoplasm. Pt was sent a certified letter in the mail regarding Chest X-ray findings. Progress Notes: 10/07/17 00:36 Chest X-ray reviewed, shows no acute processes. 10/07/17 01:55 Leaving Against Medical Advice (AMA): The patient is choosing to leave against medical advice. I have personally explained to the patient that choosing to do so may result in permanent bodily harm or . I have discussed at great length that without further evaluation and monitoring there may be unforeseen circumstances and/or deterioration causing permanent bodily harm or as a result of their choice. The patient is alert, oriented, and shows the mental capacity to make clear decisions regarding the patients health care at this time. The patient continues to wish to leave against medical advice. In light of the patients decision to leave against medical advice, the patient is aware of the importance to following up as instructed. The patient has been advised that they should return to the emergency room immediately if they change their mind at any time, or if their condition begins to change or worsen in any way. - Lab Interpretations I have reviewed the lab results: Yes - RAD Interpretation Radiology Orders: 10/06/17 22:59 CHEST TWO VIEWS (PA/LAT) [RAD] Stat [facility] Specialists: ED Physician - Medication Orders Current Medication Orders: Discontinued Medications Albuterol/Ipratropium (Duoneb 3 Mg/0.5 Mg (3 Ml) Ud) 3 ml IH STAT STA Stop: 10/06/17 23:00 Last Admin: 10/06/17 23:41 Dose: 3 ml - Scribe Statement The provider has reviewed the documentation as recorded by the Moises Rowell Provider Scribe Attestation: All medical record entries made by the Scribe were at my direction and personally dictated by me. I have reviewed the chart and agree that the record accurately reflects my personal performance of the history, physical exam, medical decision making, and the department course for this patient. I have also personally directed, reviewed, and agree with the discharge instructions and disposition. Disposition/Present on Arrival - Present on Arrival Any Indicators Present on Arrival: No History of DVT/PE: No History of Uncontrolled Diabetes: No Urinary Catheter: No History of Decub. Ulcer: No History Surgical Site Infection Following: None - Disposition Have Diagnosis and Disposition been Completed?: Yes Diagnosis: Bronchitis Disposition: AGAINST MEDICAL ADVICE Disposition Time: 01:55 Condition: UNKNOWN Prescriptions: levoFLOXacin [Levaquin] 500 mg PO DAILY #10 tab Albuterol HFA [Ventolin HFA] 1 puff IH QID #1 puff Forms: [facility] (Guamanian)
[2017-10-07 03:08] VITALS: BP 145/84; PULSE 85; RESP 18
--- NOTE | 2017-10-07 08:50 | RAD ---
HISTORY: cough COMPARISON: No prior. TECHNIQUE: Chest PA and lateral FINDINGS: LUNGS: No active pulmonary disease. PLEURA: No significant pleural effusion identified. No pneumothorax apparent. CARDIOVASCULAR: Normal. OSSEOUS STRUCTURES: No significant abnormalities. VISUALIZED UPPER ABDOMEN: Normal. OTHER FINDINGS: None. IMPRESSION: No active disease.
== END 2017-10-07 02:05 | disposition left against medical advice (07) ==
LOC: ED 22:23
DX: J40 Bronchitis, not specified as acute or chronic (principal); I10 Essential (primary) hypertension

== ENCOUNTER 2017-11-02 17:36 | Emergency (ER) | payer MEDICAID ==
[2017-11-02 17:48] VITALS: BMI 40.0
[2017-11-02 17:52] VITALS: O2SAT 98
--- NOTE | 2017-11-02 17:54 | ED PDOC ---
Arrival/HPI - General Chief Complaint: Abnormal Skin Integrity Time Seen by Provider: 11/02/17 17:41 Historian: Patient - History of Present Illness Narrative History of Present Illness (Text): 11/02/17 17:50 56 y/o male, pmh including htn/tinea infection, allergic to sulfa medication c/ o lt. hand finger itching rash x 3 days. Pt. stated that he has been itching on the left hand for the past 3-4 days, associated with mild redness, no fever or chills, no difficulty bending or extending, no numbness or tingling, no other medical or psychological complaints. Past Medical History - Provider Review Nursing Documentation Reviewed: Yes - Past History Past History: No Previous - Infectious Disease Hx of Infectious Diseases: None - Tetanus Immunization Tetanus Immunization: Unknown - Past Medical History Past Medical History: No Previous - Cardiac Hx Cardiac Disorders: Yes Hx Hypertension: Yes Hx Peripheral Edema: Yes - Pulmonary Hx Respiratory Disorders: No - Neurological Hx Neurological Disorder: No - HEENT Hx HEENT Disorder: No - Renal Hx Renal Disorder: No - Endocrine/Metabolic Hx Endocrine Disorders: No - Hematological/Oncological Hx Blood Disorders: No - Integumentary Hx Dermatological Disorder: Yes Other/Comment: ABSCESS TO L 3RD FINGER. - Musculoskeletal/Rheumatological Hx Musculoskeletal Disorders: Yes Hx Arthritis: Yes Hx Falls: No Hx Gout: Yes Other/Comment: GOUT, R KNEE PAIN, FASCIAL PAIN TO FEET - Gastrointestinal Hx Gastrointestinal Disorders: No - Genitourinary/Gynecological Hx Genitourinary Disorders: No - Psychiatric Hx Psychophysiologic Disorder: No Hx Depression: No Hx Emotional Abuse: No Hx Physical Abuse: No Hx Substance Use: No - Past Surgical History Past Surgical History: Non-Contributing - Surgical History Hx Appendectomy: Yes - Anesthesia Hx Anesthesia: Yes Hx Anesthesia Reactions: No Hx Malignant Hyperthermia: No - Suicidal Assessment Feels Threatened In Home Enviroment: No Family/Social History - Physician Review Nursing Documentation Reviewed: Yes Family/Social History: Unknown Family HX Smoking Status: Never Smoked Hx Alcohol Use: No Hx Substance Use: No Hx Substance Use Treatment: No Allergies/Home Meds Allergies/Adverse Reactions: Allergies Sulfa (Sulfonamide Antibiotics) Allergy (Verified 06/30/17 17:15) RASH ragweed Allergy (Uncoded 06/30/17 17:15) CONGESTION Review of Systems - Review of Systems Constitutional: absent: Fatigue, Fevers Eyes: absent: Vision Changes ENT: absent: Hearing Changes Respiratory: absent: SOB, Cough Cardiovascular: absent: Chest Pain Gastrointestinal: absent: Abdominal Pain, Nausea, Vomiting Skin: Rash, Pruritis, Skin Lesions. absent: Laceration, Abscess, Ulcer, Cellulitis Neurological: absent: Headache, Dizziness Psychiatric: absent: Anxiety, Depression Physical Exam - Systems Exam Head: Present: Atraumatic, Normocephalic Pupils: Present: PERRL Extroacular Muscles: Present: EOMI Conjunctiva: Present: Normal Mouth: Present: Moist Mucous Membranes Neck: Present: Normal Range of Motion Respiratory/Chest: Present: Clear to Auscultation, Good Air Exchange. No: Respiratory Distress, Accessory Muscle Use Cardiovascular: Present: Regular Rate and Rhythm, Normal S1, S2. No: Murmurs Abdomen: No: Tenderness, Distention, Peritoneal Signs Back: Present: Normal Inspection Upper Extremity: Present: Normal Inspection, Other (Lt. hand: 3rd and 4th digit visible lichenification rash appea to be tinea dermatitis with mild pinkish rash with no obvious cellulitis or ulcers, no vesicular lesion, FROM without limitation, sensation intact, motor 5/5, +radial pulse, capillary refill< 2 seconds, neurovascular intact, negative karnival signs.). No: Cyanosis, Edema Lower Extremity: Present: Normal Inspection. No: Edema Neurological: Present: GCS=15, CN II-XII Intact, Speech Normal Skin: Present: Warm, Dry, Normal Color. No: Rashes Psychiatric: Present: Alert, Oriented x 3, Normal Insight, Normal Concentration Medical Decision Making ED Course and Treatment: 11/02/17 17:53 -Pt. has no bony tenderness or swelling on the lt. hand and lt. hand 5 digits. -Discharge home with lotrisone, clindamycin, follow up with your own pmd and port cdl a driver within 2 days, return to the ER for any new or worsening signs or symptoms. - PA / PLANER CHAIN OFFBEARER / Resident Statement MD/DO has reviewed & agrees with the documentation as recorded. Disposition/Present on Arrival - Present on Arrival Any Indicators Present on Arrival: No History of DVT/PE: No History of Uncontrolled Diabetes: No Urinary Catheter: No History of Decub. Ulcer: No History Surgical Site Infection Following: None - Disposition Have Diagnosis and Disposition been Completed?: Yes Diagnosis: Tinea corporis Disposition: HOME/ ROUTINE Disposition Time: 17:54 Patient Plan: Discharge Condition: GOOD Additional Instructions: -Discharge home with lotrisone, clindamycin, follow up with your own pmd and port cdl a driver within 2 days, return to the ER for any new or worsening signs or symptoms. Prescriptions: Clindamycin [Cleocin] 300 mg PO TID #21 cap Clotrimazole/Betamethasone [Lotrisone] 1 appful EXT BID #60 g Referrals: Segundo Cole MD [Staff Provider] - Follow up with primary Forms: WORK NOTE
[2017-11-02 18:09] VITALS: BP 149/84; PULSE 88; RESP 18; TEMP 98.6
== END 2017-11-02 18:08 | disposition home or self-care (01) ==
LOC: ED 17:36
DX: B35.4 Tinea corporis (principal)

== ENCOUNTER 2017-12-27 10:08 | Emergency (ER) | payer MEDICAID ==
[2017-12-27 10:39] VITALS: BMI 34.8
[2017-12-27 10:45] VITALS: TEMP 99.5
[2017-12-27] MEDS ORDERED: Albuterol-Ipratrop 3 mg / 0.5 (3 ml) UD IH STA (10:46)
--- NOTE | 2017-12-27 10:55 | ED PDOC ---
Arrival/HPI - General Chief Complaint: Cough, Cold, Congestion Time Seen by Provider: 12/27/17 10:33 Historian: Patient - History of Present Illness Narrative History of Present Illness (Text): 12/27/17 10:47 Lupillo Rios is a 57 year old male, whose past medical history includes hypertension, who presents to the Emergency department complaining of productive cough, and lung congestion since yesterday. Patient stated he had similar symptoms in the past. Patient stated that since he moved to [place], he has been getting "a lot bronchitis". Patient denies fever, SOB, CP, abdominal pain , recent travel, sick contact, or abnormal gait. Patient stated he developed a hiccups, however, I did not noticed this during my examination. Patient denies n/v, or diarrhea today Time/Duration: Other (see hpi) Context: Home Past Medical History - Provider Review Nursing Documentation Reviewed: Yes - Past History Past History: No Previous - Infectious Disease Hx of Infectious Diseases: None - Tetanus Immunization Tetanus Immunization: Unknown - Past Medical History Past Medical History: No Previous - Cardiac Hx Cardiac Disorders: Yes Hx Hypertension: Yes Hx Peripheral Edema: Yes - Pulmonary Hx Respiratory Disorders: No - Neurological Hx Neurological Disorder: No - HEENT Hx HEENT Disorder: No - Renal Hx Renal Disorder: No - Endocrine/Metabolic Hx Endocrine Disorders: No - Hematological/Oncological Hx Blood Disorders: No - Integumentary Hx Dermatological Disorder: Yes Other/Comment: ABSCESS TO L 3RD FINGER. - Musculoskeletal/Rheumatological Hx Musculoskeletal Disorders: Yes Hx Arthritis: Yes Hx Falls: No Hx Gout: Yes Other/Comment: GOUT, R KNEE PAIN, FASCIAL PAIN TO FEET - Gastrointestinal Hx Gastrointestinal Disorders: No - Genitourinary/Gynecological Hx Genitourinary Disorders: No - Psychiatric Hx Psychophysiologic Disorder: No Hx Depression: No Hx Emotional Abuse: No Hx Physical Abuse: No Hx Substance Use: No - Past Surgical History Past Surgical History: Non-Contributing - Surgical History Hx Appendectomy: Yes - Anesthesia Hx Anesthesia: Yes Hx Anesthesia Reactions: No Hx Malignant Hyperthermia: No - Suicidal Assessment Feels Threatened In Home Enviroment: No Family/Social History - Physician Review Nursing Documentation Reviewed: Yes Family/Social History: Other (noncontributory) Smoking Status: Never Smoked Hx Alcohol Use: No Hx Substance Use: No Hx Substance Use Treatment: No Allergies/Home Meds Allergies/Adverse Reactions: Allergies Sulfa (Sulfonamide Antibiotics) Allergy (Verified 12/27/17 10:45) RASH ragweed Allergy (Uncoded 12/27/17 10:45) CONGESTION Review of Systems - Review of Systems Constitutional: Normal. absent: Fatigue, Weight Change, Fevers Eyes: Normal ENT: Normal Respiratory: SOB, Cough. absent: Sputum, Wheezing Cardiovascular: Normal. absent: Chest Pain, Palpitations Gastrointestinal: Normal. absent: Abdominal Pain, Nausea, Vomiting Genitourinary Male: Normal Musculoskeletal: Normal Skin: Normal Neurological: Normal Endocrine: Normal Hemo/Lymphatic: Normal Psychiatric: Normal Physical Exam Vital Signs Temp Pulse Resp BP Pulse Ox 12/27/17 13:23 92 H 18 197/109 H 98 12/27/17 10:41 197/112 H 97 12/27/17 10:39 99.5 F 109 H 20 197 H Temperature: Afebrile Blood Pressure: Normal Pulse: Tachycardic Respiratory Rate: Normal Appearance: Positive for: Well-Appearing, Non-Toxic, Comfortable Pain Distress: None Mental Status: Positive for: Alert and Oriented X 3 - Systems Exam Head: Present: Atraumatic, Normocephalic Pupils: Present: PERRL Extroacular Muscles: Present: EOMI Conjunctiva: Present: Normal Mouth: Present: Moist Mucous Membranes Neck: Present: Normal Range of Motion Respiratory/Chest: Present: Clear to Auscultation, Good Air Exchange. No: Respiratory Distress, Accessory Muscle Use Cardiovascular: Present: Regular Rate and Rhythm, Normal S1, S2. No: Murmurs Abdomen: No: Tenderness, Distention, Peritoneal Signs Back: Present: Normal Inspection. No: CVA Tenderness Upper Extremity: Present: Normal Inspection. No: Cyanosis, Edema Lower Extremity: Present: Normal Inspection. No: Edema Neurological: Present: GCS=15, CN II-XII Intact, Speech Normal Skin: Present: Warm, Dry, Normal Color. No: Rashes Psychiatric: Present: Alert, Oriented x 3, Normal Insight, Normal Concentration Medical Decision Making ED Course and Treatment: 12/27/17 13:35 Re-evaluation. Patient feels better. Discussed results and plan with patient who expresses understanding. All questions answered and there is agreement with the plan to discharge home with instructions. Patient stable for discharge. Return if symptoms persist or worsen. Patient stated he feels well. Denies hiccup today. Denies cp, dizziness, fever , or other somatic complain at this time. I told patient is elevated, and he needs to see his PMD for BP recheck. He said Dr. Kevin Cervantes is is PMD, and he could see him tomorrow. I reviewed labs and told him his WBC is mild elevated. He requested Levaquin since it worked the last time he had bronchitis. He understands risk of tendonitis and tendon rupture. Patient also understand risk of Solumedrol, and Prednisone including diabetes, AVN, glaucoma, osteoporosis. I told patient to return to ED if he develops chest pain, SOB, or abnormal gait, or fever, or new symptoms. Re-evaluation Time: 13:44 Reassessment Condition: Re-examined, Improved - Lab Interpretations Lab Results: 12/27/17 13:23 12/27/17 10:47 Lab Results 12/27/17 13:23: WBC 14.2 H D, RBC 4.87, Hgb 15.0, Hct 42.8, MCV 87.9, MCH 30.8, MCHC 35.0, RDW 14.0, Plt Count 281, MPV 9.6, Gran % 69.5 H, Lymph % (Auto) 18.2 L, [place] % (Auto) 9.8 H, Eos % (Auto) 2.4, Baso % (Auto) 0.1, Gran # 9.87 H, Lymph # (Auto) 2.6, [place] # (Auto) 1.4 H, Eos # (Auto) 0.3, Baso # (Auto) 0.02 12/27/17 10:47: Sodium 141, Potassium 3.6, Chloride 101, Carbon Dioxide 28, Anion Gap 16, BUN 12, Creatinine 0.8, Est GFR ( Amer) > 60, Est GFR (Non- Af Amer) > 60, Random Glucose 118 H, Calcium 9.7, Magnesium 2.1, Total Bilirubin 1.0, AST 40, ALT 55, Alkaline Phosphatase 104, Total Protein 8.2, Albumin 4.7, Globulin 3.4, Albumin/Globulin Ratio 1.4 12/27/17 10:47: Lactate Dehydrogenase 615, Total Creatine Kinase 499 H, CK-MB ( CK-2) 5.9 H, CK-MB (CK-2) % 1.2 L, Troponin I < 0.01 I have reviewed the lab results: Yes Interpretation: Abnormal lab values (mild elevated wbc) - RAD Interpretation Narrative RAD Interpretations (Text): 12/27/17 13:23 CXR: NAD Radiology Orders: 12/27/17 10:46 CHEST TWO VIEWS (PA/LAT) [RAD] Stat - EKG Interpretation Interpreted by ED Physician: Yes (sinus tachy @ [address] changes) Type: 12 lead EKG Comparison: Similar to previous EKG - Medication Orders Current Medication Orders: Discontinued Medications Acetaminophen (Tylenol 325mg Tab) 975 mg PO STAT STA Stop: 12/27/17 10:48 Last Admin: 12/27/17 11:38 Dose: 975 mg Albuterol/Ipratropium (Duoneb 3 Mg/0.5 Mg (3 Ml) Ud) 3 ml IH STAT STA Stop: 12/27/17 10:47 Last Admin: 12/27/17 11:38 Dose: 3 ml Methylprednisolone (Solu-Medrol) 125 mg IVP STAT STA Stop: 12/27/17 10:47 Last Admin: 12/27/17 11:39 Dose: 125 mg IVP Administration Document 12/27/17 11:39 SF (Rec: 12/27/17 11:39 [id number]) Charges for Administration # of IVP Administrations 1 Disposition/Present on Arrival - Present on Arrival Any Indicators Present on Arrival: No History of DVT/PE: No History of Uncontrolled Diabetes: No Urinary Catheter: No History of Decub. Ulcer: No History Surgical Site Infection Following: None - Disposition Have Diagnosis and Disposition been Completed?: Yes Diagnosis: Bronchitis, Hypertension Disposition: HOME/ ROUTINE Disposition Time: 13:46 Patient Plan: Discharge Patient Problems: Current Active Problems Problem Status Onset Bronchitis Acute Hypertension Acute Condition: GOOD Discharge Instructions (ExitCare): Acute Bronchitis, Adult (DC), High Blood Pressure (DC) Additional Instructions: Call private doctor in 1-2 days for revaluation of cough and high blood pressure. Levaquin can cause tendonitis or tendon rupture, so avoid strenous activities. Return to emergency if symptoms worsen. Prescriptions: levoFLOXacin [Levaquin] 500 mg PO DAILY #7 tab predniSONE [predniSONE Tab] 40 mg PO DAILY #6 tab Promethazine DM [Phenergan DM Syrup] 5 ml PO Q6H PRN #60 ml PRN Reason: Cough Referrals: Kevin Cervantes MD [Primary Care Provider] - Follow up with primary Forms: [employer] Gaxi[employer] ([place] Citizen)
[2017-12-27 11:46] LABS: TROPONIN I < 0.01 ng/mL
[2017-12-27 11:54] LABS: CK MB% 1.2 % (2.5-3.0); CK-MB 5.9 ng/mL (0.0-3.6)
--- NOTE | 2017-12-27 12:12 | RAD ---
Date of service: 12/27/2017 HISTORY: cough COMPARISON: 10/07/2017 TECHNIQUE: Chest PA and lateral FINDINGS: LUNGS: No active pulmonary disease. PLEURA: No significant pleural effusion identified. No pneumothorax apparent. CARDIOVASCULAR: Normal. OSSEOUS STRUCTURES: No significant abnormalities. VISUALIZED UPPER ABDOMEN: Normal. OTHER FINDINGS: None. IMPRESSION: No active disease.
[2017-12-27 12:53] LABS: ALB/GLOB RATIO 1.4 (1.1-1.8); ALBUMIN 4.7 g/dL (3.0-4.8); ALT/SGPT 55 U/L (7-56); AST/SGOT 40 U/L (17-59); BLOOD UREA NITROGEN 12 mg/dL (7-21); CALCIUM 9.7 mg/dL (8.4-10.5); GFR AFRICAN-AMERICAN > 60; GFR NON-AFRICAN AMERICAN > 60
[2017-12-27 13:23] VITALS: RESP 18
[2017-12-27 13:28] LABS: BASO # 0.02 K/mm3 (0.0-2.0); BASO % 0.1 % (0.0-3.0); EOS # 0.3 (0.0-0.7); EOS % 2.4 % (1.5-5.0); GRAN # 9.87 (1.4-6.5); GRAN % 69.5 % (50.0-68.0); LYMPH # 2.6 (1.2-3.4); LYMPH % 18.2 % (22.0-35.0); MEAN CELL VOLUME 87.9 fl (80.0-105.0); MEAN CORPUSCULAR HEMOGLOBIN 30.8 pg (25.0-35.0); MEAN PLATELET VOLUME 9.6 fl (7.0-11.0); MONO # 1.4 (0.1-0.6); MONO % 9.8 % (1.0-6.0); RBC 4.87 10^6/uL (3.5-6.1); WHITE BLOOD COUNT 14.2 10^3/ul (4.5-11.0)
[2017-12-27] MEDS ORDERED: levoFLOXacin 500 MG TAB PO STA (13:35)
[2017-12-27 14:00] VITALS: BP 191/115; PULSE 90; O2SAT 97
--- NOTE | 2017-12-27 19:12 | CARD ---
APPROVED REPORT Date of service: 12/27/2017 EKG Measurement Heart [id number] <Conclusion> Sinus tachycardia Nonspecific intraventricular conduction delay Borderline ECG
== END 2017-12-27 14:00 | disposition home or self-care (01) ==
LOC: ED 10:08
DX: J40 Bronchitis, not specified as acute or chronic (principal); I10 Essential (primary) hypertension
CPT/HCPCS: 71046; 80053; 82550; 82553; 83615; 83735; 84484; 85025; 93005; 96374; 99285; J2930

== ENCOUNTER 2018-01-04 16:26 | Emergency (ER) | payer MEDICAID ==
[2018-01-04 16:27] VITALS: BMI 34.8
[2018-01-04 16:44] VITALS: PULSE 98; RESP 19; TEMP 99.3; O2SAT 97
--- NOTE | 2018-01-04 17:16 | ED PDOC ---
Arrival/HPI - General Chief Complaint: Cough, Cold, Congestion Time Seen by Provider: 01/04/18 16:46 Historian: Patient - History of Present Illness Narrative History of Present Illness (Text): 01/04/18 16:57 Patient is a 57 year old male who presents to the Emergency department complaining of a cough for the past few days. Patient was previously seen here and discharged home with [facility]. He admits to having a productive cough with yellow sputum. Patient denies fevers, chills, shortness of breath, chest pain, dyspnea on exertion, abdominal pain, nausea, vomiting, diarrhea, urinary changes , back pain, neck pain, headache, dizziness, or any other complaint. Time/Duration: < week Symptom Onset: Sudden Symptom Course: Unchanged Context: Home Past Medical History - Provider Review Nursing Documentation Reviewed: Yes - Past History Past History: No Previous - Infectious Disease Hx of Infectious Diseases: None - Tetanus Immunization Tetanus Immunization: Unknown - Past Medical History Past Medical History: No Previous - Cardiac Hx Cardiac Disorders: Yes Hx Hypertension: Yes Hx Peripheral Edema: Yes - Pulmonary Hx Respiratory Disorders: No - Neurological Hx Neurological Disorder: No - HEENT Hx HEENT Disorder: No - Renal Hx Renal Disorder: No - Endocrine/Metabolic Hx Endocrine Disorders: No - Hematological/Oncological Hx Blood Disorders: No - Integumentary Hx Dermatological Disorder: Yes Other/Comment: ABSCESS TO L 3RD FINGER. - Musculoskeletal/Rheumatological Hx Musculoskeletal Disorders: Yes Hx Arthritis: Yes Hx Falls: No Hx Gout: Yes Other/Comment: GOUT, R KNEE PAIN, FASCIAL PAIN TO FEET - Gastrointestinal Hx Gastrointestinal Disorders: No - Genitourinary/Gynecological Hx Genitourinary Disorders: No - Psychiatric Hx Psychophysiologic Disorder: No Hx Depression: No Hx Emotional Abuse: No Hx Physical Abuse: No Hx Substance Use: No - Past Surgical History Past Surgical History: Non-Contributing - Surgical History Hx Appendectomy: Yes - Anesthesia Hx Anesthesia: Yes Hx Anesthesia Reactions: No Hx Malignant Hyperthermia: No - Suicidal Assessment Feels Threatened In Home Enviroment: No Family/Social History - Physician Review Nursing Documentation Reviewed: Yes Family/Social History: No Known Family HX Smoking Status: Never Smoked Hx Alcohol Use: No Hx Substance Use: No Hx Substance Use Treatment: No Allergies/Home Meds Allergies/Adverse Reactions: Allergies Sulfa (Sulfonamide Antibiotics) Allergy (Verified 01/04/18 16:39) RASH ragweed Allergy (Uncoded 01/04/18 16:39) CONGESTION Home Medications: Home Meds Medication Instructions Recorded Confirmed No Known Home Med 01/04/18 01/04/18 Review of Systems - Physician Review All systems were reviewed & negative as marked: Yes - Review of Systems Constitutional: absent: Fevers, Night Sweats Respiratory: Cough (Productive cough, yellow sputum). absent: SOB Cardiovascular: absent: Chest Pain, ADAME Gastrointestinal: absent: Abdominal Pain, Diarrhea, Nausea, Vomiting Genitourinary Male: absent: Urinary Output Changes Musculoskeletal: absent: Back Pain, Neck Pain Neurological: absent: Headache, Dizziness Physical Exam Vital Signs Reviewed: Yes Vital Signs Temp Pulse Resp BP Pulse Ox 01/04/18 18:15 185/99 H 01/04/18 16:40 99.3 F 98 H 19 199/137 H 97 Temperature: Afebrile Blood Pressure: Hypertensive Pulse: Regular Respiratory Rate: Normal Appearance: Positive for: Well-Appearing Mental Status: Positive for: Alert and Oriented X 3 - Systems Exam Head: Present: Atraumatic, Normocephalic Pupils: Present: PERRL Extroacular Muscles: Present: EOMI Conjunctiva: Present: Normal Mouth: Present: Moist Mucous Membranes Neck: Present: Normal Range of Motion Respiratory/Chest: Present: Clear to Auscultation, Good Air Exchange. No: Respiratory Distress, Accessory Muscle Use Cardiovascular: Present: Regular Rate and Rhythm, Normal S1, S2. No: Murmurs Abdomen: Present: Other (morbidly obese). No: Tenderness, Distention, Peritoneal Signs Back: Present: Normal Inspection Upper Extremity: Present: Normal Inspection. No: Cyanosis, Edema Lower Extremity: Present: Normal Inspection. No: Edema Neurological: Present: GCS=15, CN II-XII Intact, Speech Normal Skin: Present: Warm, Dry, Normal Color. No: Rashes Psychiatric: Present: Alert, Oriented x 3, Normal Insight, Normal Concentration Medical Decision Making ED Course and Treatment: 01/04/18 17:20 Impression: Patient is a 57 year old male who is complaining of a productive cough. Differential Diagnosis included but are not limited to: Plan: -- Chest X-ray -- Reassess and disposition Prior Visits: Notes and results from previous visits were reviewed. Patient was last seen in the Emergency department on 12/27/17 and was diagnosed with bronchitis and discharged with Levaquin. Progress Notes: 01/04/18 17:36 pt seen numerous times for similar. pt declines any lab testing. afebrile in er , speaking full sentences, suspect post viral tussis. advise cont supportive care, outpt management. 01/04/18 17:49 Chest X-ray shows no acute diseases. Interpreted by me. 01/04/18 18:16 Reevaluation: On reevaluation the patient feels better and is in no acute distress. I have discussed the results and plan with the patient, who expresses understanding. Patient given the opportunity to ask question, all questions were answered and there is agreement with the plan to discharge the patient home. Patient is stable for discharge. Patient was instructed to follow up with physician/clinic in 1-2 days or return if symptoms persist/worsen or new concerning symptoms arise. - RAD Interpretation Radiology Orders: 01/04/18 16:51 CXR [CHEST TWO VIEWS (PA/LAT)] [RAD] Stat Nightclub Manager: ED Physician - Scribe Statement The provider has reviewed the documentation as recorded by the Scribpatricio Angel Provider Scribe Attestation: All medical record entries made by the Scribe were at my direction and personally dictated by me. I have reviewed the chart and agree that the record accurately reflects my personal performance of the history, physical exam, medical decision making, and the department course for this patient. I have also personally directed, reviewed, and agree with the discharge instructions and disposition. Disposition/Present on Arrival - Present on Arrival Any Indicators Present on Arrival: No History of DVT/PE: No History of Uncontrolled Diabetes: No Urinary Catheter: No History of Decub. Ulcer: No History Surgical Site Infection Following: None - Disposition Have Diagnosis and Disposition been Completed?: Yes Diagnosis: Hypertension, Cough Disposition: HOME/ ROUTINE Disposition Time: 17:37 Condition: STABLE Discharge Instructions (ExitCare): Cough in Adults, Controlling Your Blood Pressure Through Lifestyle, Medicines for High Blood Pressure Additional Instructions: please discuss your blood pressure with your doctor. return to er with worsening s ymptoms or concerns Referrals: [facility] [place] [Outside] - Follow up with primary [facility] [Outside] - Follow up with primary Forms: [employer] ([place]ic)
[2018-01-04 18:16] VITALS: BP 185/99
--- NOTE | 2018-01-05 09:04 | RAD ---
Date of service: 01/04/2018 HISTORY: cough COMPARISON: Comparison chest 12/2014 TECHNIQUE: Chest PA and lateral FINDINGS: LUNGS: Increased/coarsened interstitial infiltrates most pronounced lung bases right greater than left. Developing infiltrates or possibly at chronic underlying interstitial fibrosis PLEURA: No significant pleural effusion identified. No pneumothorax apparent. CARDIOVASCULAR: Mild cardiomegaly. . OSSEOUS STRUCTURES: No significant abnormalities. VISUALIZED UPPER ABDOMEN: Normal. OTHER FINDINGS: None. IMPRESSION: Increased/coarsened interstitial infiltrates most pronounced lung bases right greater than left. Developing infiltrates or possibly at chronic underlying interstitial fibrosis
== END 2018-01-04 18:28 | disposition home or self-care (01) ==
LOC: ED 16:26
DX: I10 Essential (primary) hypertension (principal); R05 Cough

== ENCOUNTER 2018-01-17 19:14 | Emergency (ER) | payer MEDICAID ==
[2018-01-17 19:31] VITALS: RESP 18; TEMP 98.7; O2SAT 98; BMI 33.5
--- NOTE | 2018-01-17 19:39 | ED PDOC ---
Arrival/HPI - General Historian: Patient - General Chief Complaint: Finger,Hand,&Wrist Time Seen by Provider: 01/17/18 19:37 - History of Present Illness Narrative History of Present Illness (Text): 01/17/18 19:58 Patient is a 57 year old male with a PMH of HTN and spinal stenosis presenting to the ED with ingrown nail of the 3rd digit of left hand. Patient states that his left 3rd digit has been bothering him for months and he decided to go to the ED today since it is not getting any better. Patient had the same complaint last year and got his nail removed for pain relief. Patient denies having any fevers, chills, headaches, chest pain, shortness of breath, abdominal pain, N/V/ D, or urinary symptoms. 01/17/18 20:20 (Lex Tierney) Past Medical History - Provider Review Nursing Documentation Reviewed: Yes - Travel History Have you recently traveled outside [place] w/in the past 3 mons?: No - Past History Past History: No Previous - Infectious Disease Hx of Infectious Diseases: None - Tetanus Immunization Tetanus Immunization: Unknown - Past Medical History Past Medical History: No Previous - Cardiac Hx Cardiac Disorders: Yes Hx Hypertension: Yes Hx Peripheral Edema: Yes - Pulmonary Hx Respiratory Disorders: No - Neurological Hx Neurological Disorder: No - HEENT Hx HEENT Disorder: No - Renal Hx Renal Disorder: No - Endocrine/Metabolic Hx Endocrine Disorders: No - Hematological/Oncological Hx Blood Disorders: No - Integumentary Hx Dermatological Disorder: Yes Other/Comment: ABSCESS TO L 3RD FINGER. - Musculoskeletal/Rheumatological Hx Musculoskeletal Disorders: Yes Hx Arthritis: Yes Hx Falls: No Hx Gout: Yes Hx Spinal Stenosis: Yes Other/Comment: GOUT, R KNEE PAIN, FASCIAL PAIN TO FEET - Gastrointestinal Hx Gastrointestinal Disorders: No - Genitourinary/Gynecological Hx Genitourinary Disorders: No - Psychiatric Hx Psychophysiologic Disorder: No Hx Depression: No Hx Emotional Abuse: No Hx Physical Abuse: No Hx Substance Use: No - Past Surgical History Past Surgical History: Non-Contributing - Surgical History Hx Appendectomy: Yes - Anesthesia Hx Anesthesia: Yes Hx Anesthesia Reactions: No Hx Malignant Hyperthermia: No - Suicidal Assessment Feels Threatened In Home Enviroment: No Family/Social History - Physician Review Nursing Documentation Reviewed: Yes Family/Social History: Diabetes (Mother had DM), Hypertension (Both mother and father had HTN) Smoking Status: Never Smoked Hx Alcohol Use: No Hx Substance Use: No Hx Substance Use Treatment: No Allergies/Home Meds Allergies/Adverse Reactions: Allergies Sulfa (Sulfonamide Antibiotics) Allergy (Verified 01/04/18 16:39) RASH ragweed Allergy (Uncoded 01/04/18 16:39) CONGESTION Review of Systems - Physician Review All systems were reviewed & negative as marked: Yes - Review of Systems Constitutional: Normal. absent: Fevers, Night Sweats Eyes: Normal ENT: Normal Respiratory: Normal. absent: SOB, Cough Cardiovascular: Normal. absent: Chest Pain Gastrointestinal: Normal. absent: Abdominal Pain, Stool Changes, Constipation, Diarrhea Genitourinary Male: Normal. absent: Dysuria, Frequency Musculoskeletal: Normal. absent: Arthralgias Skin: Other (Complains of ingrown nail on 3rd digit of left hand). absent: Rash , Pruritis Neurological: Normal. absent: Headache, Dizziness Hemo/Lymphatic: Normal. absent: Easy Bleeding, Easy Bruising Psychiatric: Normal. absent: Anxiety, Depression Physical Exam Vital Signs Reviewed: Yes Temperature: Afebrile Blood Pressure: Hypertensive Pulse: Regular Respiratory Rate: Normal Appearance: Positive for: Well-Appearing, Non-Toxic, Comfortable Pain Distress: Mild Mental Status: Positive for: Alert and Oriented X 3 - Systems Exam Head: Present: Atraumatic, Normocephalic Pupils: Present: PERRL Extroacular Muscles: Present: EOMI Conjunctiva: Present: Normal Respiratory/Chest: Present: Clear to Auscultation. No: Respiratory Distress, Accessory Muscle Use, Wheezes, Rales, Rhonchi Cardiovascular: Present: Regular Rate and Rhythm, Normal S1, S2. No: Murmurs, Rub, Gallop Abdomen: Present: Normal Bowel Sounds. No: Tenderness, Distention Upper Extremity: Present: Erythema, Other (Left hand: 3rd digit with mild pinkish rash with no obvious cellulitis or ulcers, no vesicular lesion, FROM without limitation, sensation intact, motor 5/5, +radial pulse, capillary refill < 2 seconds, neurovascular intact, negative kaneval signs). No: Cyanosis, Edema Lower Extremity: Present: Edema (+1 pitting edema on right LE). No: CALF TENDERNESS Neurological: Present: GCS=15, CN II-XII Intact, Speech Normal Skin: Present: Warm, Dry, Rashes, Normal Color Psychiatric: Present: Alert, Oriented x 3, Normal Insight, Normal Concentration Vital Signs Temp Pulse Resp BP Pulse Ox 01/17/18 19:25 98.7 F 91 H 18 219/123 H 98 Medical Decision Making Reassessment Condition: Re-examined ED Course and Treatment: 01/17/18 20:03 Impression: Patient is a 57 year old male who is complaining of an ingrown nail on his left middle finger. Differential Diagnosis included but are not limited to: - Ingrown nail Plan: - Clindamycin Prior Visits: Notes and results from previous visits were reviewed. Patient was last seen in the Emergency department on 01/04/18 for a cough. Progress Notes: 01/17/18 20:05 - Examined patient with attending. Patient is not in distress. Will send patient home with Clindamycin, instructed patient to follow up with his PMD and to see a military equipment specialist. - Patient BP is 219/123 on admission. Patient refuses to take any medications. Patient was educated on the dangers of having such high blood pressure. Patient decided to leave AMA and continue to refuse any antihypertensive medications. (Lex Tierney) A 57 year old male whose past medical history includes hypertension and spinal stenosis, presents to the emergency department with ingrown nail of the 3rd digit of left hand for months. Patient Seen With Resident: In agreement with resident note which contains more details about the patient. Patient was seen and evaluated with resident. Came up with plan and treatment together. (Surinder Atkins) Disposition/Present on Arrival - Present on Arrival Any Indicators Present on Arrival: No History of DVT/PE: No History of Uncontrolled Diabetes: No Urinary Catheter: No History of Decub. Ulcer: No History Surgical Site Infection Following: None - Disposition Have Diagnosis and Disposition been Completed?: Yes Disposition Time: 20:27 - Disposition Diagnosis: Ingrown nail of left middle finger Disposition: AGAINST MEDICAL ADVICE Patient Problems: Current Active Problems Problem Status Onset Ingrown nail of left middle finger Acute Condition: STABLE Additional Instructions: 1. Please take Clindamycin 300mg by mouth 3 times daily for 7 days 2. Please follow up with your primary care doctor for blood pressure control and wound care referral 3. Please return to the nearest emergency room for worsening or newly concerning symptoms Prescriptions: Clindamycin [Cleocin] 300 mg PO Q8H #21 cap Referrals: Nohemi Florentino MD [Medical Doctor] - Follow up with primary Forms: [employer] (Serbian)
[2018-01-17 20:55] VITALS: BP 219/110; PULSE 86
== END 2018-01-17 20:54 | disposition left against medical advice (07) ==
LOC: ED 19:14
DX: L60.0 Ingrowing nail (principal); I10 Essential (primary) hypertension

== ENCOUNTER 2018-05-13 17:46 | Emergency (ER) | payer MEDICAID ==
[2018-05-13 17:54] VITALS: BMI 40.0
[2018-05-13] MEDS ORDERED: Sodium Chloride 0.9% 500 ML IV STA (18:17)
--- NOTE | 2018-05-13 18:30 | ED PDOC ---
Arrival/HPI - General Chief Complaint: Abdominal Pain Time Seen by Provider: 05/13/18 17:52 Historian: Patient - History of Present Illness Narrative History of Present Illness (Text): 05/13/18 18:25 57yr old male presents today with left sided rib and upper abdominal pain x approximately 3-4 days. pt states he feel off his bed a few days ago and has been having continued pain. pt states it feels like he pulled a muscle. pt de nies shortness of breath. denies pain with deep inspiration. pt states he has an achy pain to the left ribs/abdomen. pt denies nausea/vomiting/diarrhea/constipation. no fever/chills. no back pain. no medications taken at home for pain. Past Medical History - Provider Review Nursing Documentation Reviewed: Yes - Travel History Have you recently traveled outside [place] w/in the past 3 mons?: No - Past History Past History: No Previous - Infectious Disease Hx of Infectious Diseases: None - Tetanus Immunization Tetanus Immunization: Unknown - Past Medical History Past Medical History: No Previous - Cardiac Hx Cardiac Disorders: Yes Hx Hypertension: Yes Hx Peripheral Edema: Yes - Pulmonary Hx Respiratory Disorders: No - Neurological Hx Neurological Disorder: No - HEENT Hx HEENT Disorder: No - Renal Hx Renal Disorder: No - Endocrine/Metabolic Hx Endocrine Disorders: No - Hematological/Oncological Hx Blood Disorders: No - Integumentary Hx Dermatological Disorder: Yes Other/Comment: ABSCESS TO L 3RD FINGER. - Musculoskeletal/Rheumatological Hx Musculoskeletal Disorders: Yes Hx Arthritis: Yes Hx Gout: Yes Hx Spinal Stenosis: Yes Other/Comment: GOUT, R KNEE PAIN, FASCIAL PAIN TO FEET - Gastrointestinal Hx Gastrointestinal Disorders: No - Genitourinary/Gynecological Hx Genitourinary Disorders: No - Psychiatric Hx Psychophysiologic Disorder: No Hx Depression: No Hx Emotional Abuse: No Hx Physical Abuse: No Hx Substance Use: No - Past Surgical History Past Surgical History: Non-Contributing - Surgical History Hx Appendectomy: Yes - Anesthesia Hx Anesthesia: Yes Hx Anesthesia Reactions: No Hx Malignant Hyperthermia: No - Suicidal Assessment Feels Threatened In Home Enviroment: No Family/Social History - Physician Review Nursing Documentation Reviewed: Yes Family/Social History: Unknown Family HX Smoking Status: Never Smoked Hx Alcohol Use: No Hx Substance Use: No Hx Substance Use Treatment: No Allergies/Home Meds Allergies/Adverse Reactions: Allergies Sulfa (Sulfonamide Antibiotics) Allergy (Verified 01/04/18 16:39) RASH ragweed Allergy (Uncoded 01/04/18 16:39) CONGESTION Review of Systems - Review of Systems Constitutional: absent: Fatigue, Fevers ENT: absent: Sore Throat Respiratory: absent: SOB, Cough Cardiovascular: Other (left rib pain). absent: Chest Pain, Palpitations Gastrointestinal: Abdominal Pain. absent: Constipation, Diarrhea, Nausea, Vomiting Genitourinary Male: absent: Dysuria, Frequency, Hematuria Musculoskeletal: Arthralgias (left rib pain). absent: Back Pain, Neck Pain Skin: absent: Rash, Pruritis Neurological: absent: Headache, Dizziness Psychiatric: absent: Anxiety, Depression Physical Exam Vital Signs Reviewed: Yes Temperature: Afebrile Blood Pressure: Normal Pulse: Regular Respiratory Rate: Normal Appearance: Positive for: Well-Appearing, Non-Toxic, Comfortable Pain Distress: None Mental Status: Positive for: Alert and Oriented X 3 - Systems Exam Head: Present: Atraumatic Mouth: Present: Moist Mucous Membranes Neck: Present: Normal Range of Motion, Trachea Midline Respiratory/Chest: Present: Clear to Auscultation, Good Air Exchange, Tender to Palpation (+ minimal ttp over left lower lateral and anterior ribs. no step offs or crepitus. ). No: Respiratory Distress, Accessory Muscle Use Cardiovascular: Present: Regular Rate and Rhythm, Normal S1, S2. No: Murmurs Abdomen: Present: Tenderness (+ minimal luq tenderness. no ecchymosis. ), Normal Bowel Sounds. No: Distention, Rebound, Guarding Back: Present: Normal Inspection. No: Midline Tenderness, Paraspinal Tenderness Upper Extremity: Present: Normal ROM Lower Extremity: Present: Normal ROM Neurological: Present: GCS=15 Skin: Present: Warm, Dry, Normal Color. No: Rashes Psychiatric: Present: Alert, Oriented x 3 Medical Decision Making ED Course and Treatment: 05/13/18 18:31 57yr old male with left sided rib and abdominal pain x 3-4 s/p falling off bed. cbc: wnl cmp: trop; wnl ekg; normal sinus rhythm at 94 bpm normal axis normal intervals no ST elevations pa chest and left ribs xray: no fracture ct chest/abd/pelvis: There is no evidence of pleural or parenchymal mass. There are no pleural effusions. There is no evidence of hilar or mediastinal lymphadenopathy. Specifically, there is no evidence for paratracheal and supraclavicular adenopa thy. There is no evidence for a chest or abdominal wall nodule or mass. The heart and great vessels are within normal limits. The liver is of uniform attenuation without mass or defect. The gallbladder is contracted and contains several small calcified gallstones. There is no intrahepatic or extrahepatic biliary ductal dilatation. The spleen is normal. The pancreas is of normal contour and attenuation characteristics. There is no evidence of adrenal mass. Both kidneys demonstrate prompt and equal nephrograms. The kidneys are normal in size, shape and configuration. There is no evidence of renal mass. There is no hydroureter or hydronephrosis. There is no bowel wall thickening. No evidence for small or large bowel obstruction. There are numerous small mesenteric and retroperitoneal lymph nodes present of unclear etiology, non-specific. The prostate gland is mildly enlarged and contains calcifications. Please correlate with PSA levels. Small hiatal hernia is present. There is no evidence of intrinsic or extrinsic bladder mass. There is no pelvic ascites or lymphadenopathy. The bony structures are free of lytic or blastic lesions. There is grade-1 an terolisthesis of L4 over L5 measures 5 mm. There is advanced multilevel spondylosis. IMPRESSION: 1. No evidence of acute chest, abdominal or pelvic pathology. 2. The gallbladder is contracted and contains several small calcified gallstones. 3. Numerous small mesenteric and retroperitoneal lymph nodes present of unclear etiology, non-specific. 4. The prostate gland is mildly enlarged and contains calcifications. Please correlate with PSA levels. 5. Small hiatal hernia. 6. Grade-1 anterolisthesis of L4 over L5. Electronically signed on May 13, 2018 9:20:55 PM EST by: Roc Rincon M.D., K[facility]AR Certified By [facility] [facility] Fellowship Trained MRI and CT Specialist pt reassessment: pt is non toxic well appearing; no distress. stable vitals. pt walking around the ER, wants to go home. discussed results with patient in depth; advised him of need for f/u with PMD and urologist regarding enlarged prostate found on ct. advised patient to return immediately if symptoms worsen,persist or if new symptoms develop. Patient's blood pressure was elevated in the emergency room. He is refusing to take blood pressure medications in the emergency room to decrease in blood pressure. Patient states is noncompliant with medications at home and states he takes homeopathic medications for blood pressure control. Patient has been advised to not leave the emergency room but has decided to go AGAINST MEDICAL ADVICE. The patient possesses capacity to make decisions and has voiced understanding to all my warnings of potential worsening of the condition for which medical care was sought. I have discussed all known and potential risks and consequences to the patient leaving AGAINST MEDICAL ADVICE. Patient is leaving against medical advise. AMA form signed. witness by HARSHA Cerrato. all aspects of this case were discussed the attending of record. impression; rib contusion, enlarged prostate, hypertension return if you wish to continue your care. tylenol every 4 hours as needed for pain increase fluids follow up with the primary care physician within the next 2 days follow up with the urologist within the next 2 days regarding your enlarged prostate return immediately if symptoms worsen,persist or if new symptoms develop. - RAD Interpretation Radiology Orders: 05/13/18 18:17 RIBS LEFT & PA CHEST [RAD] Stat 05/13/18 18:18 CHEST,ABD,PEL W/IV CONT ONLY [CT] Stat - Medication Orders Current Medication Orders: Sodium Chloride (Sodium Chloride 0.9%) 500 mls @ 999 mls/hr IV .Q31M STA Stop: 05/13/18 18:47 Disposition/Present on Arrival - Present on Arrival Any Indicators Present on Arrival: No History of DVT/PE: No History of Uncontrolled Diabetes: No Urinary Catheter: No History of Decub. Ulcer: No History Surgical Site Infection Following: None - Disposition Have Diagnosis and Disposition been Completed?: Yes Diagnosis: Rib contusion Disposition: AGAINST MEDICAL ADVICE Disposition Time: 20:56 Patient Plan: Discharge Patient Problems: Current Active Problems Problem Status Onset Rib contusion Acute Condition: GOOD Discharge Instructions (ExitCare): Bruised Rib Additional Instructions: return if you wish to continue your care. tylenol every 4 hours as needed for pain increase fluids follow up with the primary care physician within the next 2 days follow up with the urologist within the next 2 days regarding your enlarged prostate return immediately if symptoms worsen,persist or if new symptoms develop. Referrals: Reanna Travis MD [Primary Care Provider] - Follow up with primary Gayle Simpson MD [Staff Provider] - Follow up with primary Forms: [employer] (Frisian), WORK NOTE
[2018-05-13 19:20] VITALS: TEMP 98.4
[2018-05-13 19:29] LABS: ALB/GLOB RATIO 1.5 (1.1-1.8); ALBUMIN 4.7 g/dL (3.0-4.8); ALT/SGPT 57 U/L (7-56); AST/SGOT 48 U/L (17-59); BASO # 0.03 K/mm3 (0.0-2.0); BASO % 0.3 % (0.0-3.0); BLOOD UREA NITROGEN 25 mg/dL (7-21); CALCIUM 9.5 mg/dL (8.4-10.5); EOS # 0.3 (0.0-0.7); EOS % 2.9 % (1.5-5.0); GFR NON-AFRICAN AMERICAN > 60; GRAN # 6.48 (1.4-6.5); HEMOGLOBIN 14.8 g/dL (14.0-18.0); LYMPH # 3.9 (1.2-3.4); MEAN CELL VOLUME 91.7 fl (80.0-105.0); MEAN CORPUSCULAR HEMOGLOBIN 30.6 pg (25.0-35.0); MEAN CORPUSCULAR HGB CONC 33.4 g/dl (31.0-37.0); MEAN PLATELET VOLUME 9.6 fl (7.0-11.0); MONO % 8.8 % (1.0-6.0); RBC 4.83 10^6/uL (3.5-6.1); RED CELL DISTRIBUTION WIDTH 13.7 % (11.5-14.5); WHITE BLOOD COUNT 11.8 10^3/uL (4.5-11.0)
[2018-05-13 19:31] LABS: URINE BILIRUBIN NEGATIVE (NEGATIVE); URINE BLOOD NEGATIVE (NEGATIVE); URINE GLUCOSE (UA) NEGATIVE (NEGATIVE); URINE LEUKOCYTE ESTERASE NEGATIVE Leu/uL (NEGATIVE); URINE PROTEIN NEGATIVE mg/dL (<30 mg/dL); URINE UROBILINOGEN 0.2 E.U./dL (<1 E.U./dL)
[2018-05-13 19:33] LABS: PARTIAL THROMBOPLASTIN TIME 34.2 Seconds (25.1-36.5); PROTHROMBIN TIME 11.4 SECONDS (9.4-12.5)
[2018-05-13 19:40] LABS: URINE APPEARANCE CLEAR (CLEAR); URINE COLOR YELLOW (YELLOW)
[2018-05-13 19:41] LABS: TROPONIN I 0.03 ng/mL
[2018-05-13 19:56] LABS: CK MB% 1.4 % (2.5-3.0); CK-MB 8.6 ng/mL (0.0-3.6)
[2018-05-13 22:26] VITALS: BP 200/109; PULSE 90; RESP 17; O2SAT 100
--- NOTE | 2018-05-14 08:17 | RAD ---
Date of service: 05/13/2018 PROCEDURE: Radiographs of the Chest and Left Ribs. HISTORY: left lower rib pain s/p fall COMPARISON: Chest radiographs 01/04/2018.. TECHNIQUE: Frontal radiograph of the chest and multiple oblique radiographs of the left ribs were obtained. FINDINGS: LEFT RIBS: No fracture or focal lesion visualized. LUNGS: Clear. PLEURA: No pneumothorax or pleural fluid. CARDIOVASCULAR: Normal cardiac size. No pulmonary vascular congestion. No aortic atherosclerotic calcification present OTHER FINDINGS: None. IMPRESSION: Unremarkable radiographs of the chest and left ribs. No left rib fracture.
--- NOTE | 2018-05-14 08:38 | CT ---
Date of service: 05/13/2018 PROCEDURE: CT Chest, Abdomen and Pelvis with intravenous contrast HISTORY: left rib and upper abd pain s/ p fall COMPARISON: None available. TECHNIQUE: IV dose administered: Radiation dose: Total exam DLP = 1922.23 mGy-cm. This CT exam was performed using one or more of the following dose reduction techniques: Automated exposure control, adjustment of the mA and/or kV according to patient size, and/or use of iterative reconstruction technique. FINDINGS: CT CHEST WITH CONTRAST: LUNGS: Clear. No nodule, mass or consolidation. MEDIASTINUM: Unremarkable. Normal caliber aorta and pulmonary arterial trunk. No aortic dissection. Normal size heart. LYMPH NODES: Unremarkable. PLEURA: Unremarkable. No pneumothorax. No pleural fluid. BONES: Unremarkable. OTHER FINDINGS: None. CT ABDOMEN AND PELVIS: LIVER: Unremarkable. No gross lesion or ductal dilatation. GALLBLADDER AND BILE DUCTS: Gallstones. PANCREAS: Unremarkable. No gross lesion or ductal dilatation. SPLEEN: Unremarkable. ADRENALS: Unremarkable. No mass. KIDNEYS AND URETERS: Unremarkable. No hydronephrosis. No solid mass. VASCULATURE: No aortic atherosclerotic calcification or mural plaque present. Unremarkable. No aortic aneurysm. BOWEL: Unremarkable. No obstruction. No gross mural thickening. APPENDIX: Normal appendix. PERITONEUM: Unremarkable. No free fluid. No free air. LYMPH NODES: Unremarkable. No enlarged lymph nodes. BLADDER: Unremarkable. REPRODUCTIVE: Unremarkable. BONES: No acute fracture. OTHER FINDINGS: None. IMPRESSION: Gallstones.
--- NOTE | 2018-05-15 00:08 | CARD ---
APPROVED REPORT Date of service: 05/13/2018 EKG Measurement Heart [id number] <Conclusion> Normal sinus rhythm Incomplete RBBB Nonspecific ST and T wave abnormality Abnormal ECG
== END 2018-05-13 22:21 | disposition left against medical advice (07) ==
LOC: ED 17:46
DX: S20.212A Contusion of left front wall of thorax, initial encounter (principal); W06.XXXA Fall from bed, initial encounter; Y92.003 Bedroom of unspecified non-institutional (private) residence as the place of occurrence of the external cause; I10 Essential (primary) hypertension
CPT/HCPCS: 71101; 71260; 74177; 80053; 81003; 82550; 82553; 83615; 84484; 85025; 85610; 85730; 93005; 99285; J7040

== ENCOUNTER 2018-05-30 18:16 | Emergency (ER) | payer MEDICAID ==
[2018-05-30 18:16] VITALS: BMI 40.0
[2018-05-30] MEDS ORDERED: guaiFENesin DM 100 mg-10 mg/5 ml UD PO STA (22:01)
[2018-05-30] MEDS ORDERED: levoFLOXacin 500 MG TAB PO STA (22:07)
--- NOTE | 2018-05-30 22:11 | ED PDOC ---
Arrival/HPI - General Chief Complaint: Fever Time Seen by Provider: 05/30/18 18:18 Historian: Patient - History of Present Illness Narrative History of Present Illness (Text): 05/30/18 22:08 57yo male with pmhx of hypertension who present with complaint of cough and fever since yesterday. He did not take any medication. Denies chest pain, SOB, diaphoresis, nausea, vomiting, sick contact, any other complaint. Past Medical History - Provider Review Nursing Documentation Reviewed: Yes - Past History Past History: No Previous - Infectious Disease Hx of Infectious Diseases: None - Tetanus Immunization Tetanus Immunization: Unknown - Past Medical History Past Medical History: No Previous - Cardiac Hx Cardiac Disorders: Yes Hx Hypertension: Yes Hx Peripheral Edema: Yes - Pulmonary Hx Respiratory Disorders: No - Neurological Hx Neurological Disorder: No - HEENT Hx HEENT Disorder: No - Renal Hx Renal Disorder: No - Endocrine/Metabolic Hx Endocrine Disorders: No - Hematological/Oncological Hx Blood Disorders: No - Integumentary Hx Dermatological Disorder: Yes Other/Comment: ABSCESS TO L 3RD FINGER. - Musculoskeletal/Rheumatological Hx Musculoskeletal Disorders: Yes Hx Arthritis: Yes Hx Gout: Yes Hx Spinal Stenosis: Yes Other/Comment: GOUT, R KNEE PAIN, FASCIAL PAIN TO FEET - Gastrointestinal Hx Gastrointestinal Disorders: No - Genitourinary/Gynecological Hx Genitourinary Disorders: No - Psychiatric Hx Psychophysiologic Disorder: No Hx Depression: No Hx Emotional Abuse: No Hx Physical Abuse: No Hx Substance Use: No - Past Surgical History Past Surgical History: Non-Contributing - Surgical History Hx Appendectomy: Yes - Anesthesia Hx Anesthesia: Yes Hx Anesthesia Reactions: No Hx Malignant Hyperthermia: No - Suicidal Assessment Feels Threatened In Home Enviroment: No Family/Social History - Physician Review Nursing Documentation Reviewed: Yes Family/Social History: Unknown Family HX Smoking Status: Never Smoked Hx Alcohol Use: No Hx Substance Use: No Hx Substance Use Treatment: No Allergies/Home Meds Allergies/Adverse Reactions: Allergies Sulfa (Sulfonamide Antibiotics) Allergy (Verified 01/04/18 16:39) RASH ragweed Allergy (Uncoded 01/04/18 16:39) CONGESTION Review of Systems - Physician Review All systems were reviewed & negative as marked: Yes - Review of Systems Constitutional: Normal Eyes: Normal ENT: Normal Respiratory: Cough. absent: SOB, Sputum Cardiovascular: Normal Gastrointestinal: Normal Genitourinary Male: Normal Musculoskeletal: Normal Skin: Normal Neurological: Normal Endocrine: Normal Hemo/Lymphatic: Normal Psychiatric: Normal Physical Exam Vital Signs Reviewed: Yes Vital Signs Temp Pulse Resp BP Pulse Ox 05/30/18 20:13 100.0 F H 85 24 192/115 H 99 05/30/18 18:16 98.9 F 92 H 18 205/115 H 96 Temperature: Afebrile Blood Pressure: Hypertensive Pulse: Regular Respiratory Rate: Normal Appearance: Positive for: Well-Appearing, Non-Toxic, Comfortable Pain Distress: None Mental Status: Positive for: Alert and Oriented X 3 - Systems Exam Head: Present: Atraumatic, Normocephalic Pupils: Present: PERRL Extroacular Muscles: Present: EOMI Conjunctiva: Present: Normal Mouth: Present: Moist Mucous Membranes Neck: Present: Normal Range of Motion Respiratory/Chest: Present: Clear to Auscultation, Good Air Exchange. No: Respiratory Distress, Accessory Muscle Use, Wheezes, Decreased Breath Sounds, Rales, Retracting, Rhonchi Cardiovascular: Present: Regular Rate and Rhythm, Normal S1, S2. No: Murmurs Abdomen: No: Tenderness, Distention, Peritoneal Signs Back: Present: Normal Inspection Upper Extremity: Present: Normal Inspection. No: Cyanosis, Edema Lower Extremity: Present: Normal Inspection. No: Edema Neurological: Present: GCS=15, CN II-XII Intact, Speech Normal Skin: Present: Warm, Dry, Normal Color. No: Rashes Psychiatric: Present: Alert, Oriented x 3, Normal Insight, Normal Concentration Medical Decision Making ED Course and Treatment: 05/30/18 23:57 57yo male who present with complaint of cough and fever x 2days Pt's BP was elevated, he states he takes garlic for his BP and does not want to take BP medication and will sign, like he usually do not take it it. He verbalized the risk of OR, CVA, that can occur. He denies chest pain, focal weakness, visual changes, headache SOB, any other complaint. Chest xray - NAD Robitussin Levaqin Rapid flu - Negative Result was DW the pt. PT signed out AMA Understood he can return to ED at anytime for control of his BP - RAD Interpretation Radiology Orders: 05/30/18 19:06 CHEST TWO VIEWS (PA/LAT) [RAD] Stat - Medication Orders Current Medication Orders: Discontinued Medications Azithromycin (Zithromax) 500 mg PO STAT STA; Protocol Stop: 05/30/18 22:01 Guaifenesin/Dextromethorphan (Robitussin Dm) 5 ml PO Q4H STA Stop: 05/30/18 22:02 Disposition/Present on Arrival - Present on Arrival Any Indicators Present on Arrival: No History of DVT/PE: No History of Uncontrolled Diabetes: No Urinary Catheter: No History of Decub. Ulcer: No History Surgical Site Infection Following: None - Disposition Have Diagnosis and Disposition been Completed?: Yes Diagnosis: Cough, Hypertension Disposition: AGAINST MEDICAL ADVICE Disposition Time: 22:10 Condition: GUARDED Prescriptions: guaiFENesin/Dextromethorphan [guaiFENesin-DM] 118 ml PO Q6 #5 udc levoFLOXacin [Levaquin] 500 mg PO DAILY #5 tab Referrals: Reanna Travis MD [Primary Care Provider] - Follow up with primary Forms: [employer] (Slovak)
[2018-05-30 22:30] VITALS: BP 185/99; PULSE 89; RESP 18; TEMP 98.2; O2SAT 98
--- NOTE | 2018-05-31 09:48 | RAD ---
Date of service: 05/30/2018 HISTORY: cough COMPARISON: 05/13/2018 TECHNIQUE: Chest PA and lateral FINDINGS: LUNGS: Crowding of pulmonary markings likely due to right lower lobe atelectasis. PLEURA: No significant pleural effusion identified. No pneumothorax apparent. CARDIOVASCULAR: No aortic atherosclerotic calcification present. No radiographic findings to suggest acute or significant cardiovascular disease. No pulmonary vascular congestion. OSSEOUS STRUCTURES: No significant abnormalities. VISUALIZED UPPER ABDOMEN: Normal. OTHER FINDINGS: None. IMPRESSION: Right lower lobe infiltrate/atelectasis. These are perceptible changes compared to the prior study.
== END 2018-05-30 22:30 | disposition left against medical advice (07) ==
LOC: ED 18:16
DX: I10 Essential (primary) hypertension (principal); R05 Cough

== ENCOUNTER 2018-10-18 19:01 | Emergency (ER) | payer MEDICAID ==
[2018-10-18 19:10] VITALS: BMI 37.3
--- NOTE | 2018-10-18 19:10 | ED PDOC ---
Arrival/HPI - General Historian: Patient - History of Present Illness Narrative History of Present Illness (Text): 10/18/18 19:10 57yo male with pmhx of hypertension and right lower leg edema who present with complaint of mildly pruritic rash to his right lower leg x one week. Denies previous history. Denies redness, fever, chills, chest pain, SOB, calf pain, diaphoresis, any other complaint. Past Medical History - Provider Review Nursing Documentation Reviewed: Yes - Past History Past History: No Previous - Infectious Disease Hx of Infectious Diseases: None - Tetanus Immunization Tetanus Immunization: Unknown - Past Medical History Past Medical History: No Previous - Cardiac Hx Cardiac Disorders: Yes Hx Hypertension: Yes Hx Peripheral Edema: Yes - Pulmonary Hx Respiratory Disorders: No - Neurological Hx Neurological Disorder: No - HEENT Hx HEENT Disorder: No - Renal Hx Renal Disorder: No - Endocrine/Metabolic Hx Endocrine Disorders: No - Hematological/Oncological Hx Blood Disorders: No - Integumentary Hx Dermatological Disorder: Yes Other/Comment: ABSCESS TO L 3RD FINGER. - Musculoskeletal/Rheumatological Hx Musculoskeletal Disorders: Yes Hx Arthritis: Yes Hx Gout: Yes Hx Spinal Stenosis: Yes Other/Comment: GOUT, R KNEE PAIN, FASCIAL PAIN TO FEET - Gastrointestinal Hx Gastrointestinal Disorders: No - Genitourinary/Gynecological Hx Genitourinary Disorders: No - Psychiatric Hx Psychophysiologic Disorder: No Hx Depression: No Hx Emotional Abuse: No Hx Physical Abuse: No Hx Substance Use: No - Past Surgical History Past Surgical History: Non-Contributing - Surgical History Hx Appendectomy: Yes - Anesthesia Hx Anesthesia: Yes Hx Anesthesia Reactions: No Hx Malignant Hyperthermia: No - Suicidal Assessment Feels Threatened In Home Enviroment: No Family/Social History - Physician Review Nursing Documentation Reviewed: Yes Family/Social History: Unknown Family HX Smoking Status: Never Smoked Hx Alcohol Use: No Hx Substance Use: No Hx Substance Use Treatment: No Allergies/Home Meds Allergies/Adverse Reactions: Allergies Sulfa (Sulfonamide Antibiotics) Allergy (Verified 01/04/18 16:39) RASH ragweed Allergy (Uncoded 01/04/18 16:39) CONGESTION Review of Systems - Physician Review All systems were reviewed & negative as marked: Yes - Review of Systems Constitutional: Normal Eyes: Normal ENT: Normal Respiratory: Normal Cardiovascular: Normal Gastrointestinal: Normal Genitourinary Male: Normal Musculoskeletal: Normal Skin: Rash, Pruritis Neurological: Normal Endocrine: Normal Hemo/Lymphatic: Normal Psychiatric: Normal Physical Exam Vital Signs Reviewed: Yes Temperature: Afebrile Blood Pressure: Normal Pulse: Regular Respiratory Rate: Normal Appearance: Positive for: Well-Appearing, Non-Toxic, Comfortable Pain Distress: None Mental Status: Positive for: Alert and Oriented X 3 - Systems Exam Head: Present: Atraumatic, Normocephalic Pupils: Present: PERRL Extroacular Muscles: Present: EOMI Conjunctiva: Present: Normal Mouth: Present: Moist Mucous Membranes Neck: Present: Normal Range of Motion Respiratory/Chest: Present: Clear to Auscultation, Good Air Exchange. No: Respiratory Distress, Accessory Muscle Use Cardiovascular: Present: Regular Rate and Rhythm, Normal S1, S2. No: Murmurs Abdomen: No: Tenderness, Distention, Peritoneal Signs Back: Present: Normal Inspection Upper Extremity: Present: Normal Inspection, NORMAL PULSES, Neurovascularly Intact. No: Cyanosis, Edema, Tenderness, Temperature Abnormalties Lower Extremity: Present: Normal Inspection, Edema (3+ pitting edema to right lower leg) Neurological: Present: GCS=15, CN II-XII Intact, Speech Normal Skin: Present: Warm, Dry, Rashes (Localized purpura/erythematous rash, nonb lanching noted to proximal right anterior lower leg), Normal Color Psychiatric: Present: Alert, Oriented x 3, Normal Insight, Normal Concentration Medical Decision Making ED Course and Treatment: 10/18/18 19:50 Leaving Against Medical Advice (AMA): The patient is choosing to leave against medical advice. I have personally explained to the patient that choosing to do so may result in permanent bodily harm, disability, or . I have discussed at great length that without further evaluation and monitoring there may be unforeseen circumstances and/or deterioration causing permanent bodily harm or as a result of their choice. The patient is alert, oriented, and shows the mental capacity to make clear decisions regarding the patients health care at this time. The patient continues to wish to leave against medical advice. In light of the patients decision to leave against medical advice, follow-up h as been arranged and the patient is aware of the importance to following up as instructed. The patient has been advised that they should return to the emergency room immediately if they change their mind at any time, or if their condition begins to change or worsen in any way. Disposition/Present on Arrival - Present on Arrival Any Indicators Present on Arrival: No History of DVT/PE: No History of Uncontrolled Diabetes: No Urinary Catheter: No History Surgical Site Infection Following: None - Disposition Have Diagnosis and Disposition been Completed?: Yes Diagnosis: Rash, Uncontrolled hypertension Disposition: AGAINST MEDICAL ADVICE Disposition Time: 19:20 Condition: UNKNOWN Discharge Instructions (ExitCare): Skin Rash (DC), Topical Corticosteroid Medicines Additional Instructions: Follow up with your Doctor/Final Inspection Supervisor Return to ED for any new or worsening symptoms Prescriptions: Hydrocortisone 2.5% 2.5 % TP BID #1 oin Referrals: Segundo Cole MD [Staff Provider] - Follow up with primary Forms: [employer] (K[place]akh)
[2018-10-18 19:24] VITALS: RESP 18; TEMP 98.7; O2SAT 98
[2018-10-18 19:36] VITALS: BP 204/125; PULSE 90
== END 2018-10-18 19:35 | disposition left against medical advice (07) ==
LOC: ED 19:01
DX: R21 Rash and other nonspecific skin eruption (principal); I10 Essential (primary) hypertension